=== PATIENT | male | born 1950 | race Two or more races ===

== ENCOUNTER 2024-06-29 21:09 | Inpatient (IN) | payer OTHER, SELFPAY ==
[2024-06-29 21:13] VITALS: BP 159/79
[2024-06-29 21:15] VITALS: BMI 23.3
[2024-06-29 22:38] VITALS: BP 155/68
[2024-06-29] MEDS: NITRO-BID 0.5 INCH TOPICAL (22:39)
[2024-06-29] MEDS: IMODIUM 2 MG PO (22:39)
[2024-06-29] MEDS: FLOMAX 0.8 MG PO (22:39)
--- NOTE | 2024-06-29 23:03 | HPS.HSE ---
Family Physician
-
Family Physician: Сергей Lopez
Chief Complaint
-
Localized exertional substernal chest pain x 10 days
History of Present Illness
Pleasant 74 y/o man with PMH of CAD S/P PCI with stents x 3 to LAD and RCA, 2004 and again in 2015. 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 It is noted that pt is medically non-compliant and intermittently takes meds, and has not
followed up with his Shipping Room Helper for > 5 years. Pt c/o exertional 7-8/10 localized substernal chest pain x 10 days, limiting his ability to walk his dog. States, his girlfriend drove him in to [facility] ER on 06/28/24 to seek medical
attention. Pt denies any associated symptoms of SOB, diaphoresis, nausea and vomiting. Pt does admit to having loose stools while at [facility]. Pt's SBP was noted to be 205 at [facility], as well as a slightly elevated high sensitivity Troponin I of
25. Pt underwent a left heart cath on 06/29/24 and was found to have multivessel CAD including in-stent restenosis of his LAD and RCA stents. Pt had TTE done on 06/29/24 which showed LVEF 60-65%, mild to moderate AI, and mild MR/TR. Pt was transferred
seek revascularization at on the evening of 06/29/24.
Medical History
Past Medical History
Past Medical History: Reports Other
Additional Past Medical History:
-Multivessel CAD
-Hx CAD
-NSTEMI (high sensitivity trop I of 25)
-USA
-LVEF 60-65%
-Mild-mod AI
-Mild MR/TR
-HTN
-HLD
-Bradycardia
-BPH
-Loose stools
Past Surgical History: Reports Other
Additional Past Surgical History:
-Left heart cath x 3
Social History
Tobacco: Non-smoker
Alcohol: Occasional
Drug: None
Personal: Other (has girlfriend, 3 children and 10 grandchildren)
Living: Alone
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
Family History
Family History: Not pertinent
Allergies / Home Medications
Allergies reflects when Allergies were last updated in [employer].
Home Medications with original date entered in [employer]
Meds: 06/29/24
-ASA, 81 mg po QDaily
-Losartan 25 mg po Qdaily
-Lipitor 40m g po QPM
-Flomax 0.8 mg po QHS
Allergy/Medication List:
NKDA
Review of Systems
-
Constitutional: Reports No Symptoms
EENT: Reports No Symptoms
Respiratory: Reports No Symptoms
Cardiac: Reports Chest Pain
Abdomen/GI: Reports Diarrhea
: Reports Incontinence (and retention)
Musculoskeletal: Reports No Symptoms
Skin: Reports No Symptoms
Neurological: Reports No Symptoms
Endocrine: Reports No Symptoms
Hematologic/Lymphatic: Reports No Symptoms
Psych: Reports No Symptoms
Physical Exam
Vital Signs
Vital Signs
Temp Pulse Resp BP Pulse Ox
98.0 F 58 18 159/79 97
06/29/24 21:17 06/29/24 22:00 06/29/24 21:17 06/29/24 21:13 06/29/24 21:17
Physical Exam
General: Well Developed and Well Nourished
HEENT: NormoCephalic, Anicteric, Moist mucous membranes and Atraumatic
Respiratory: Clear
Cardiac: S1/S2 and Regular Rhythm
Breast: Deferred by me
GI: Soft, Non Tender and Non Distended
Rectal: Deferred by Provider
Genito-urinary: Deferred by me
Musculoskeletal: No Clubbing, No Cyanosis and No Edema
Skin: Warm
Neuro: Awake, Alert, Oriented, AO x 3 and No Motor Deficits
Psych: Calm
Data Reviewed
-
Diagnostic Radiology: Report Reviewed by me
Medical Tests (Nuc Med, Echo, EKG etc): Report Reviewed by me
Lab Data: Labs Reviewed by me
Old Records: Reviewed
Impression/Plan
-
IMPRESSION:
Pleasant 74 y/o with known CAD S/P PCI with stents to LAD/RCA in 2004 and 2114, as well as a chronic WET PROCESS MILLER of mid LCx which is being treated medically, presented to [facility] on 06/29/24 with 7-8/10 localized exertional CP x 10 days, found to have
multivessel CAD including in-stent restenosis of LAD and RCA, transferred to the evening of 06/29/24 to seek CABG evaluation.
-Multivessel CAD
-Hx CAD
-NSTEMI (high sensitivity trop I of 25)
-USA
-LVEF 60-65%
-Mild-mod AI
-Mild MR/TR
-HTN
-HLD
-Bradycardia
-BPH
-Loose stools
-S/P left heart catheterization x 3
PLAN:
-Dr. Carrera to evaluate imaging and determine if pt is a surgical candidate
-Will consult Cardiology
-Will cont. ASA, Heparin gtt, Nitro-paste, Toprol XL, Flomax
-Will f/u AM labs
[2024-06-29] MEDS: HEPARIN 25000 UNITS/250 ML IV (23:08)
[2024-06-29] MEDS: TOPROL XL 12.5 MG PO (23:19)
[2024-06-29] MEDS: MAALOX 30 ML PO (23:37)
[2024-06-29 23:53] LABS: Hematocrit 39.1 % (39.0-52.0); Hemoglobin 13.5 g/dL (13.0-18.0); Mean Corp Hgb Conc. 34.5 g/dL (33.0-37.0); Mean Corpuscular Hgb 28.4 pg (27.0-31.0); Mean Corpuscular Volume 82.3 fL (80.0-94.0); Mean Platelet Volume 12.2 fL (7.4-10.4); Platelet Count 189 10^3/uL (130-400); Red Blood Cell Count 4.75 10^6/uL (4.70-6.10); Red Cell Dist. Width 13.7 % (11.5-14.5); White Blood Cell Count 8.4 10^3/uL (4.8-10.8)
[2024-06-30] VITALS (12 sets, daily range): BP systolic 117–202; BP diastolic 70–93; BMI 22.7
[2024-06-30 00:24] LABS: APTT 41.6 Sec (23.4-35.0)
--- NOTE | 2024-06-30 01:37 | PTCARENOTE ---
Pt called nursing to room again c/o heartburn. Pt had asked nursing if we had any baking soda. PA notified Lidia franklin.
[2024-06-30] MEDS: MYLICON 80 MG PO (01:43)
[2024-06-30] MEDS: NITRO-BID 0.5 INCH TOPICAL ×3 (05:42→17:56)
[2024-06-30 06:11] LABS: Hematocrit 37.8 % (39.0-52.0); Hemoglobin 12.9 g/dL (13.0-18.0); Mean Corp Hgb Conc. 34.1 g/dL (33.0-37.0); Mean Corpuscular Hgb 28.2 pg (27.0-31.0); Mean Corpuscular Volume 82.5 fL (80.0-94.0); Mean Platelet Volume 12.3 fL (7.4-10.4); Platelet Count 183 10^3/uL (130-400); Red Blood Cell Count 4.58 10^6/uL (4.70-6.10); Red Cell Dist. Width 13.8 % (11.5-14.5); White Blood Cell Count 7.4 10^3/uL (4.8-10.8)
[2024-06-30 06:15] LABS: PT 13.5 Sec (11.4-14.6)
[2024-06-30 06:29] LABS: ALT (SGPT) 23 U/L (0-50); AST (SGOT) 30 U/L (17-59); Albumin 4.3 g/dl (3.5-5.0); Alkaline Phosphatase 61 U/L (38-126); Blood Urea Nitrogen 17 mg/dl (9-20); Calcium 9.1 mg/dl (8.4-10.2); Carbon Dioxide 20 mmol/L (22-30); Chloride 108 mmol/L (98-107); Direct Bilirubin 0.1 mg/dl (0.0-0.4); Estimated Creatinine Clearance 74 ml/min; Glucose 129 mg/dl (70-99); HDL Cholesterol 65 mg/dl; LDL Cholesterol, Calculated 180 mg/dl; Potassium 4.2 mmol/L (3.5-5.1); Sodium 139 mmol/L (135-145); Total Bilirubin 1.1 mg/dl (0.2-1.3); Total Cholesterol 261 mg/dl (50-199); Total Protein 6.9 g/dl (6.3-8.2); Triglyceride 81 mg/dl (10-149); Very Low Density Lipoprotein 16 mg/dl (0-30); eGFR > 60.00
[2024-06-30 06:53] LABS: Magnesium 2.1 mg/dl (1.6-2.3)
[2024-06-30 07:25] LABS: Hepatitis C Antibody Negative (Negative)
[2024-06-30] MEDS: ASPIR LOW (ENTERIC COATED) 81 MG PO (08:52)
[2024-06-30] MEDS: TOPROL XL PO (08:53)
[2024-06-30] MEDS: PROTONIX 40 MG PO (08:53)
[2024-06-30 09:21] LABS: Glycohemoglobin (HgbA1c) 5.8 % (4.0-5.6)
--- NOTE | 2024-06-30 10:35 | PTCARENOTE ---
Patient denies any chest pain or sob this morning, states he slept well and feels good. Sent for his CT of the chest and ultrasound this morning. IV heparin infusing at 1030 units/hr, for repeat PTT at 1315. Patient awaiting when surgery will be.
--- NOTE | 2024-06-30 12:36 | CM ---
spoke to pt in room, he is prev indep, lives alone in a 1 story home with no steps to enter. he denies any dc planning needs or dme's. dc plan is home when medically stable. plan is for CABG tomorrow.
--- NOTE | 2024-06-30 13:48 | W.PN.UPDATE ---
Update Note
Progress Note Update
Procedure Type:�Isolated CABG
Perioperative Outcome Estimate %
Operative Mortality 1.64%
Morbidity & Mortality 5.66%
Stroke 1.26%
Renal Failure 0.853%
Reoperation 2.67%
Prolonged Ventilation 2.66%
Deep Sternal Wound Infection 0.064%
Long Hospital Stay (>14 days) 2.68%
Short Hospital Stay (<6 days)* 52.1%
Clinical Summary
Planned Surgery: Isolated CABG, Urgent, First cardiovascular surgery
Demographics: 74 year old, male, 65.6kg, 170cm, BMI: 22.7 kg/m�
Lab Values: Creatinine: 0.8 mg/dL, Hematocrit: 37.8%, WBC Count: 7.4 10�/�L, Platelet Count: 979703 cells/�L
Substance Abuse: Never smoker, Alcohol use: <=1 drink/week
Risk Factors / Comorbidities: Hypertension
Coronary Artery Disease: 3 vessels diseased, Proximal LAD Stenosis >=70%, Unstable Angina, AK: 1 to 7 Days
Valve Disease: Moderate AR, Mild MR, Mild TR
[2024-06-30 14:01] LABS: APTT 86.7 Sec (23.4-35.0)
--- NOTE | 2024-06-30 15:14 | CON.CAR ---
Consultation
Consultation Request
Date/Time Consultation Requested: June 30, 2024 9 AM
Date/Time Consultation Performed: June 30, 2024 3:15 PM
Requesting Provider: CT surgery
Performing Provider: Jeffery Garcia
Reason for Consultation: Multivessel CAD
Medical History
-
Chief Complaint: Transfer for CABG
History of Present Illness:
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 He tells me that he had substernal chest pain going on
approximately 2 weeks that was limiting his ability to walk his dogs. Because this lasted for so long he then sought out medical treatment at [facility] on June 28, 2024. He had mildly elevated troponin and was taken to the Psychological Science Professor that
showed multivessel CAD including in-stent restenosis of his LAD and RCA stents. He then had a TTE done on June 29 that showed normal LV function with an ejection fraction of 60-65%, mild to moderate AI, and mild MR and TR. He was then transferred
here for CABG consideration. He is currently chest pain-free and feels well.
Past Medical History
Past Medical History: Other (Multivessel CAD status post PCI, NSTEMI, mild to moderate AI, mild MR, mild TR, hypertension, hyperlipidemia)
Past Surgical History: Other (Heart cath)
Social History
Tobacco: Non-Smoker
Alcohol: Occasional
Drug: None
Personal: Partner
Living: With Family
Employment: Retired
Family History
Family History: Reviewed & Not Pertinent
Allergies / Home Medications
Allergy/AdvReac Type Severity Reaction Status Date / Time
No Known Allergies Allergy Unverified 06/29/24 22:04
�Medication �Instructions �Recorded �Confirmed �Type
aspirin 81 mg tablet 81 mg PO HS 06/30/24 06/30/24 History
atorvastatin 40 mg tablet 40 mg PO QPM 06/30/24 06/30/24 History
losartan 50 mg tablet 50 mg PO DAILY 06/30/24 06/30/24 History
tamsulosin 0.4 mg capsule 0.8 mg PO HS 06/30/24 06/30/24 History
Review of Systems
-
All other systems: Negative unless noted
Physical Exam
Vital Signs
Temp Pulse Resp BP Pulse Ox
98.4 F 55 16 165/84 97
06/30/24 11:16 06/30/24 12:26 06/30/24 11:16 06/30/24 12:26 06/30/24 11:16
Lab Results
06/30/24 05:54
06/30/24 05:54
Physical Exam
General: Well Developed, No Apparent Distress and Comfortable
HEENT: Normocephalic
Respiratory: Clear and Non Labored Respirations
Cardiac: S1/S2 and Regular Rhythm
GI: Soft
Musculoskeletal: No Cyanosis and No Edema
Skin: Warm and Dry
Neuro: AO x 3
Psych: Calm
Impression / Plan
-
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 He was found to have an NSTEMI and cath showed multi-vessel CAD.
Multi vessel CAD
- CABG tomorrow AM
- Cont aspirin heparin gtt
- statin
HTN
- cont metoprolol
HLD
- cont statin
BPH
- cont tamsulosin
Data Reviewed
-
EKG: Tracing Personally Visualized and interpreted (sr)
Labs: Labs Reviewed by me
--- NOTE | 2024-06-30 16:32 | CM ---
spoke to pt in room, we discussed preop teaching including sternal and driving restrictions. he is prev indep, lives in a first floor duplex. has 2 kids- his daughter is nearby and his son is in [place]. his daughter will be staying with him after
surgery. he has the ct surgery book. he is agreeable to a f/u visit from the ct transitional care nurse after dc. plan is for cabg tomorrow am. cm role explained and all questions answered.
[2024-06-30] MEDS: LIPITOR 40 MG PO (17:55)
[2024-06-30] MEDS: TOPROL XL 12.5 MG PO (19:31)
[2024-06-30 20:01] LABS: APTT 99.6 Sec (23.4-35.0)
--- NOTE | 2024-06-30 21:55 | PTCARENOTE ---
Received patient at change of shift. SB on the monitor, HR in the 50s. R radial UMER, intact. Heparin running as per protocol, see MAR. No complaints from pt at this time call mahoney within reach.
[2024-06-30] MEDS: FLOMAX 0.8 MG PO (22:17)
[2024-06-30] MEDS: APRESOLINE 10 MG IV (23:25)
[2024-06-30] MEDS: NITRO-BID 1 INCH TOPICAL (23:48)
[2024-06-30] MEDS: HEPARIN 25000 UNITS/250 ML IV (23:49)
[2024-07-01] VITALS (15 sets, daily range): BP systolic 82–174; BP diastolic 52–81; BMI 22.4
--- NOTE | 2024-07-01 00:02 | PTCARENOTE ---
Clipped and bathed pt with CHG soap. BP 202/88, CT surgery PA notfied. Hydralazine and nitropaste administered as per PA, see MAY. NPO at midnight. BP now 145/70.
[2024-07-01 05:23] LABS: Hematocrit 37.1 % (39.0-52.0); Hemoglobin 12.8 g/dL (13.0-18.0); Mean Corp Hgb Conc. 34.5 g/dL (33.0-37.0); Mean Corpuscular Hgb 28.7 pg (27.0-31.0); Mean Corpuscular Volume 83.2 fL (80.0-94.0); Mean Platelet Volume 12.6 fL (7.4-10.4); Platelet Count 193 10^3/uL (130-400); Red Blood Cell Count 4.46 10^6/uL (4.70-6.10); Red Cell Dist. Width 13.8 % (11.5-14.5); White Blood Cell Count 6.9 10^3/uL (4.8-10.8)
[2024-07-01] MEDS: BACTROBAN 2% OINTMENT 1 APPLIC NASAL ×2 (06:05→20:16)
[2024-07-01] MEDS: LOPRESSOR 12.5 MG PO (06:05)
[2024-07-01] MEDS: PROTONIX 40 MG PO (06:05)
[2024-07-01] MEDS: MAGNESIUM OXIDE 500 MG PO (06:05)
[2024-07-01] MEDS: NITRO-BID TOPICAL ×2 (06:10→13:06)
[2024-07-01 06:22] LABS: APTT > 200 Sec (23.4-35.0)
[2024-07-01] MEDS: PROTONIX PO (07:45)
[2024-07-01] MEDS: TOPROL XL PO (07:46)
[2024-07-01] MEDS: ASPIR LOW (ENTERIC COATED) PO (07:48)
--- NOTE | 2024-07-01 08:40 | PTCARENOTE ---
Patient seen by Dr. Carrera this morning and would like him transferred to CVICU this morning pre-op. Patient transferred with his belongings to room 2262, report given to Renee.
--- NOTE | 2024-07-01 09:15 | W.PN.CD ---
Today's Communication / Plan
-
Surgery today.
Impression / Plan
-
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
#NSTEMI/Multi vessel CAD
-Acute on chronic, progressive.
-Cath reportedly shows ISR of LAD/LCx stents.
-CABG today.
-Cont aspirin heparin gtt.
-High dose, high potency statin.
-Anticipate routine post operative management.
#HTN
-Chronic, uncontrolled.
-Cont metoprolol.
-Hydralazine PRN.
-He will probably need a different regimen after surgery. There is some question of medication compliance.
#HLD
-Chronic, stable.
-Total cholesterol = 261, LDL = 180, HDL = 65, Triglycerides = 81.
-High dose, high potency statin.
-Goal LDL < 55.
#BPH
-Chronic, stable.
-Continue tamsulosin.
Subjective/Interval History:
Hypertensive overnight. Hydralazine given.
BP improved.
DATA:
CT Chest, 06/30/2024:
IMPRESSION:
1. SEVERE CALCIFIC ATHEROSCLEROTIC PLAQUE in the CORONARY ARTERIES.
2. Mild calcific atherosclerotic plaque and tortuosity of the thoracic aorta.
3. Mild cardiomegaly.
4. Mild bilateral bronchitis.
5. Mild subpleural subsegmental atelectasis and scarring in the basilar segments of the lower lobes and additional bands of scarring in the right lower and middle lobes.
6. Minimal bilateral pleural effusions.
7. Large 7.6 cm left renal cyst containing a large 2.8 cm calcification.
Carotid Artery Duplex, 06/30/2024:
IMPRESSION: Soft plaque distal right common carotid artery and bulb. Velocity profiles consistent with less than 50% bilateral internal carotid artery stenosis. Antegrade flow bilateral vertebral arteries.
Physical Exam
Vital Signs/Labs
Vital Signs
Temp Pulse Resp BP Pulse Ox
36.9 C 60 18 138/80 98
07/01/24 08:16 07/01/24 06:05 07/01/24 08:16 07/01/24 06:05 07/01/24 08:16
06/29/24 06/30/24 07/01/24
11:59 11:59 11:59
Actual Weight 65.6 kg 64.8 kg
07/01/24 05:04
06/30/24 05:54
PT 13.5 Sec (11.4-14.6) 06/30/24 05:54
INR 1.00 06/30/24 05:54
APTT > 200 Sec (23.4-35.0) H* 07/01/24 05:46
Magnesium 2.1 mg/dl (1.6-2.3) 06/30/24 05:54
Triglycerides 81 mg/dl (10-149) 06/30/24 05:54
LDL Cholesterol, Calc 180 mg/dl 06/30/24 05:54
VLDL Cholesterol, Calc 16 mg/dl (0-30) 06/30/24 05:54
HDL Cholesterol 65 mg/dl 06/30/24 05:54
Physical Exam
Constitutional: No acute distress and Comfortable
EENT: Anicteric and Moist mucous membranes
Cardiovascular: Rhythm & rate is regular, Pedal edema is absent, JVD pressure is normal, S1S2 is normal and Murmur/rub/gallop absent
Respiratory: Respiratory effort normal, Lungs clear to auscul., Wheeze Absent, Crackles Absent and Rhonchi Absent
GI: Soft, Distention absent, Flat, Non tender and Normal bowel sounds
Neuro/Psych: AO x 3
Data Reviewed
-
Date of Service: July 01, 2024
Medical Decision Making: Reviewed Test Results, Independent Historian Assessment and Test Interpretation
EKG: Tracing Personally Visualized and interpreted and Report Reviewed by me
X-Ray/CT/US/MRI/NUC/PET: Report Reviewed by me
Medical Tests (PFT, Pathology etc): Report Reviewed by me
Labs: Labs Reviewed by me
Old Records: Reviewed
--- NOTE | 2024-07-01 10:30 | W.CVOR.SURPR ---
CVOR Surgeon Immed Pre Op
-
I have examined this patient prior to performance of the scheduled procedure.
The patient's condition is unchanged from the time of the dictated/written History and
Physical and the patient is able to undergo the scheduled procedure.
CABG +JOZEF Clip
--- NOTE | 2024-07-01 10:56 | CM ---
Chart reviewed. Patient is in the OR today. Patient is independent of ADLS, lives alone in a 1st floor apartment, 0 NARESH, 0 DME. Patient's daughter is going to stay with the patient when he goes home. Plan is for the patient to go home with CT
Transitional RN. CM to follow
[2024-07-01 12:23] LABS: ACT+ - POC 93 Seconds (82-134)
[2024-07-01 12:41] LABS: Urine Albumin 2+ (Neg - Trace); Urine Bilirubin Negative (Negative); Urine Character Clear (Clear); Urine Color Yellow; Urine Glucose Negative (Negative); Urine Ketone Negative (Negative); Urine Leukocyte Negative (Negative); Urine Nitrite Negative (Negative); Urine Occult Blood 3+ (Negative); Urine Specific Gravity 1.015 (<1.030); Urine Urobilinogen Negative (Neg - 1+)
[2024-07-01 13:22] LABS: Urine Red Blood Cell 16-20 /HPF (0-2)
[2024-07-01 13:46] LABS: ACT+ - POC 465 Seconds (82-134)
[2024-07-01 13:55] LABS: Glucose - POC 108 mg/dl (70-99); HCO3 - POC 24 mmol/L (21-28); Hematocrit - POC 38 % PCV (42-52); Hemodilution- POC No; Hemoglobin Calculated - POC 12.9; Ionized Calcium - POC 1.11 mmol/L (1.15-1.33); Lactate - POC 0.68 mmol/L (0.36-0.75); O2 Saturation %Calculated-POC 99.8 % (94-98); PCO2 - POC 35 mmHg (35-48); PO2 - POC 235 mmHg (83-108); Potassium - POC 3.5 mmol/L (3.5-5.1); Sodium - POC 141 mmol/L (136-145); Specimen Type - POC Arterial; pH - POC 7.44 (7.35-7.45)
[2024-07-01 14:09] LABS: ACT+ - POC 525 Seconds (82-134)
[2024-07-01 14:38] LABS: ACT+ - POC 516 Seconds (82-134)
[2024-07-01 15:03] LABS: Glucose - POC 158 mg/dl (70-99); HCO3 - POC 24 mmol/L (21-28); Hematocrit - POC 30 % PCV (42-52); Hemodilution- POC Yes; Hemoglobin Calculated - POC 10.3; Lactate - POC 1.03 mmol/L (0.36-0.75); O2 Saturation %Calculated-POC 99.9 % (94-98); PCO2 - POC 38 mmHg (35-48); PO2 - POC 286 mmHg (83-108); Potassium - POC 4.4 mmol/L (3.5-5.1); Sodium - POC 140 mmol/L (136-145); Specimen Type - POC Arterial
[2024-07-01 15:16] LABS: B.E. - POC -0.7 mmol/L; Glucose - POC 127 mg/dl (70-99); HCO3 - POC 24 mmol/L (21-28); Hematocrit - POC 31 % PCV (42-52); Hemodilution- POC Yes; Hemoglobin Calculated - POC 10.6; Ionized Calcium - POC 0.94 mmol/L (1.15-1.33); Lactate - POC < 0.30 mmol/L (0.36-0.75); PCO2 - POC 38 mmHg (35-48); PO2 - POC 484 mmHg (83-108); Potassium - POC 4.5 mmol/L (3.5-5.1); Sodium - POC 138 mmol/L (136-145); Specimen Type - POC Arterial; pH - POC 7.41 (7.35-7.45)
[2024-07-01 15:34] LABS: ACT+ - POC 109 Seconds (82-134)
--- NOTE | 2024-07-01 15:55 | CON.INTV ---
Consultation
Consultation Request
Date/Time Consultation Requested: 07/01/2024
Date/Time Consultation Performed: 07/01/2024
Requesting Provider: Juan C Carrera
Performing Provider: Darling Gallegos
Reason for Consultation: CAD
Medical History
-
Chief Complaint: Chest pain
History of Present Illness:
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 He had ongoing pain for about 2 weeks time
prior to his presentation. In the hospital he was noted to have mildly elevated troponin and noted to have non-ST elevation RI. He was taken to Clinical Technician and noted to have multivessel coronary artery disease with in-stent restenosis of his LAD and
RCA stents. LV function was noted to be normal and he was transferred to [facility] for consideration for coronary artery bypass graft. Cardiology and CT surgery evaluated the patient and he was taken to the OR today for surgical
revascularization. Postsurgery, patient was brought to cardiovascular ICU and welding instructor consultation was requested for further input.
Past Medical History: Reports Other
Additional Past Medical History:
-Multivessel CAD
-Hx CAD (PCIs in the past)
-NSTEMI (high sensitivity trop I of 25)
-USA
-LVEF 60-65%
-Mild-mod AI
-Mild MR/TR
-HTN
-HLD
-Bradycardia
-BPH
-Loose stools
Past Surgical History: Reports Other
Additional Past Surgical History:
-Left heart cath x 3
Social History
Tobacco: Non-smoker
Alcohol: Occasional
Drug: None
Personal: Other (has girlfriend, 3 children and 10 grandchildren)
Living: Alone
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
Family History
Family History: Not pertinent
Allergies / Home Medications
Allergies
Allergy/AdvReac Type Severity Reaction Status Date / Time
No Known Allergies Allergy Unverified 06/29/24 22:04
Home Medications
�Medication �Instructions �Recorded �Confirmed �Last Taken �Type
aspirin 81 mg tablet 81 mg PO HS 06/30/24 06/30/24 06/29/24 History
atorvastatin 40 mg tablet 40 mg PO QPM 06/30/24 06/30/24 06/29/24 History
losartan 50 mg tablet 50 mg PO DAILY 06/30/24 06/30/24 06/29/24 History
tamsulosin 0.4 mg capsule 0.8 mg PO HS 06/30/24 06/30/24 06/29/24 History
Review of Systems
-
Unable to Obtain full review of systems at this time due to: Patient Intubation and Other (Sedated)
Vitals / Labs / Diagnostic Testing
Vital Signs
Temp Pulse Resp BP Pulse Ox
98.4 F 57 18 145/69 98
07/01/24 08:16 07/01/24 11:00 07/01/24 08:16 07/01/24 11:00 07/01/24 08:16
Laboratory Results
06/30/24 07/01/24 07/01/24
19:42 05:04 05:46
APTT 99.6 H Cancelled > 200 H*
Microbiology
06/30/24 05:54 Nose MRSA Screen - Final
No Methicillin Resistant Staphylococcus aureus isolated.
Diagnostic Testing:
Physical Exam
-
HEENT: Normocephalic
Cardiovascular: Regular Rhythm
Respiratory: Clear and Non-Labored Respirations
GI: Soft
Neurology: Other (Sedated)
Skin: Warm
General: Comfortable
Assessment
-
74 y/o patient with NSTEMI and multivessel coronary artery disease is S/p CABG x4 and left atrial appendage exclusion, POD #0
Titrate off pressors per protocol, currently receiving IVF bolus for CVP 2, Levophed infusing @2
ECHO reviewed with normal EF
PA catheter removed, Cordis in place
Management of chest tubes per primary service
Intubated/sedated, initiate SAT when able
Pain control
RASS goal of 0 to -1
Intubated for procedure, SBT trial when patient able to spontaneously breath. Currently on Precedex @0.5
Current vent settings: SIMV 500/14/40%/PEEP 5. breathing @ 14/min
ABG(s) pending
CXR with no obvious opacities/infiltrates, low lung volumes, ETT in good position, lines/tubes in place
Extubate per protocol
Maintain supplement oxygen as needed
No prior history of pulmonary disease. Will discuss further once patient is awake, alert and able to participate in conversation
Spirometry reviewed, normal
Can add nebulizers if needed
Aspiration precautions
Encouraged incentive spirometry, OOB/ambulation/early mobility
Advance diet as tolerated following extubation
Monitor critical I/O's
Baxter/chest tube output
Hb/platelets postoperatively, labs pending
Trend CBC for now
Can transfuse if indicated for Hb <7, plt <50 in surgical patients
DVT prophylaxis including SCDs
Insulin protocol initiated and ongoing, per protocol
Transition to SQ/off as indicated per team
Critical Care time 65 mins -- The patient is admitted for acute critical illness for the treatment of vital organ failure and/or prevention of further life-threatening conditions. Total care includes time spent in review of history, physical exam,
medications, hemodynamic/ventilator parameters, laboratory data, imaging and discussion with house staff, pharmacy, respiratory therapy, cath laboratory technician, and nursing.
Data:
Spirometry 06/2024: FFEV1 89%, FVC 95%. FEV1/FVC 71. Normal spirometry
BARBARA 06/2024: Normal biventricular systolic function with no wall motion abnormalities. The
LVEF is 60-65% by visual inspection.
Mild mitral regurgitation.
Mild to moderate aortic insufficiency.
Normal tricuspid valve.
Grade III atheromatous disease of the aortic arch is present.
Normal left atrial appendage
CT Chest 06/2024: 1. SEVERE CALCIFIC ATHEROSCLEROTIC PLAQUE in the CORONARY ARTERIES.
2. Mild calcific atherosclerotic plaque and tortuosity of the thoracic aorta.
3. Mild cardiomegaly.
4. Mild bilateral bronchitis.
5. Mild subpleural subsegmental atelectasis and scarring in the basilar segments of the lower lobes and additional bands of scarring in the right lower and middle lobes.
6. Minimal bilateral pleural effusions.
7. Large 7.6 cm left renal cyst containing a large 2.8 cm calcification
Cardiac cath 06/2024: (Merrill Hurtado). Multivessel CAD, in-stent restenosis of his LAD and RCA stents
--- NOTE | 2024-07-01 15:59 | W.PN.CT.SURG ---
CT Surgery Operative Note
-
CARDIAC SURGERY OPERATIVE REPORT
Preoperative Diagnosis: Multivessel Coronary Artery Disease with NSTEMI
Postoperative Diagnosis: Same
Procedure(s) Performed:
1. Sinus with aortic and right atrial cannulation
2. Internal mammary artery harvesting
3. Endoscopic radial artery and lower extremity vein harvesting
4. Multi arterial coronary artery bypass grafting x 4 (In situ LUCERO to LAD, Ao to L Radial OM, Ao to RSVG to High diagonal, Ao to RSVG to RPDA)
5. Placement of temporary ventricular pacing wire
6. Left atrial appendage exclusion [45 mm device, serial #[id number]]
7. Transesophageal echocardiography
Date of Surgery: 07/01/2024
Comorbidities:
1. NSTEMI
2. Multivessel coronary disease status post PCI and stenting in the past
3. Hypertension
4. Hyperlipidemia
5. Sinus bradycardia
Attending Surgeon: Juan C Carrera MD, MS
Assistants: Marsha Nelson PA-C (present and necessary to first helper, endoscopic vein harvest, retraction, suction, exposure, suture management, and wound closure under my direction), Juan C May PA-C (endo radial harvest)
Anesthesiology: Sathya Amaral MD and Myles Avila CRNA
Scrub and Circulating RNs: Tyrone Lopez RN, tSephani Burnette RN
Data Security Administrator: Cramen Wooten CCP
Anesthesia: GETA
EBL: per perfusion records
Products: None
CPB Time: 82 minutes
Aortic Cross Clamp Time: 78 minutes
Indication(s) for Procedures: This is a 74-year-old male who presented with an NSTEMI, he had multivessel coronary artery disease and prior stenting in the past. Given his disease pattern, he was referred here for surgical consideration. 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 Due to his elevated chads Vascor, his left atrial appendage will be managed at time of surgery.
Conduit(s) Quality:
LUCERO -excellent/skeletonized
Left radial�excellent/thin pedicle with veins
RSVG -good/overall minimal varicosities and thickening
Target(s) Quality:
RPDA -excellent/large caliber target, flow probe assessment with mean flow of 29 cc a minute and pulsatile index of 5.5
OM -excellent/the radial was grafted here, the mean flow was approximately 18 cc a minute with a pulsatile index of 4.8, the radial was grafted directly off of the aorta
Diagonal�excellent large caliber vessel, mean flow of 25 cc a minute with a pulse index of 3.5
LAD -good/I opened across the distal lesion of the LUCERO LAD at the small diagonal vessel and created a 2 cm arteriotomy and grafted the LUCERO to that length, mean flow was 20 cc a minute at a pulsatile index of 5.1
Findings: His left ventricular ejection fraction preoperatively was normal at 60% with no significant regional wall motion abnormalities. He he did have a mild degree of aortic valve insufficiency and a mild degree of mitral valve insufficiency
which remained unchanged. Only surgery his EF remained the same at 60% with no new regional wall motion abnormalities. The LUCERO was harvested in a skeletonized fashion. Following bypass grafting, test dose cardioplegia was given down each distal
and confirmed patency and hemostasis. With respect to the LAD target, as he had a distal lesion after the stent I opened up the lesion entirely spanning approximately 2 cm and performed anastomosis over that length. This allowed great perfusion to
the distal LAD as well as retrograde. His left atrial appendage was verified to be free of any thrombus or debris preoperatively and found to be totally occlusive postoperatively. He did not require any blood products, he was in a sinus rhythm
after surgery, he did not require any inotropic support.
Description of Procedure: The patient was taken to the operating room. Their identity and procedure to be performed were verified and they were positioned supine on the operating table. Induction via general anesthesia with endotracheal intubation
was performed and central venous access and arterial monitoring were inserted. A preoperative transesophageal echocardiogram was performed to assess cardiac function and valvular function. The patient was then prepped and draped from chin to feet in
a sterile fashion. A preoperative time-out was performed with all members of the team present. A midline chest incision was performed along with median sternotomy. Simultaneous endoscopic access of the right lower extremity for saphenous vein and
left arm for radial artery harvest was obtained along with administration of an initial 5,000 units of IV heparin. A RulTract sternal retractor was positioned to exposure the left internal mammary bed. The mammary was harvested and found to have
good flow. A bulldog clamp was applied to the distal end of the mammary after dividing it. It was wrapped in a papaverine soaked RayTec and replaced back into the left hemithorax. The RulTract was exchanged for a median sternal retractor. The
innominate vein was isolated. Full heparinization was given (a total of 38,000 units). We created a pericardial well. The aortic cannulation site was chosen where it was soft, pliable, and free of calcium. Cannulation was performed with an arterial
cannula in the ascending aorta and a triple-stage venous cannula through the right atrial appendage. The arterial cannula line had an appropriate bounce and correlating pressures with test dosing. Next, a root vent/antegrade cannula was inserted
into the ascending aorta. The ACT was confirmed to be over 400 and retrograde autologous priming was performed before commencing cardiopulmonary bypass. The pulmonary artery was away from the aorta to facilitate a clamp site. The aortic
cross-clamp was placed after decreasing the flow on the bypass and mean arterial pressure. A total of 1.2L initial dose of antegrade Del-Nido cardioplegia solution was given and planned for re-dosing every 75 minutes as necessary. There was rapid
electro-mechanical arrest of the heart at 400 cc of cardioplegia. The left ventricle was observed for distention on echocardiogram and manual palpation. Cold slush was placed into a sponge and topically on the RV while we systemically cooled to 34
degrees centigrade. Once the heart was fully arrested it was decompressed and rotated medially, the left atrial Penders was sized to a 45 mm device which was applied flush to the base. The ligament of Hunter was divided.
At this point since I ready had the heart rotated over the OM was exposed. I opted to dissect the OM vessel with a Lowell blade and found a fairly sizable target. A small coronary tree artery was created and enlarged with Poole scissors. The
distal end of the radial artery graft was beveled and a distal anastomosis was created with 8-0 Prolene in a running fashion and secured with a micro core knot. An Angiocath was used to inflate and assess flow down the radial artery graft which was
excellent. Was also adequate hemostasis. Next, I positioned the heart to expose the high diagonal vessel. A pitka's point blade was used to expose the coronary and perform the arteriotomy. Coronary Poole scissors were used to enlarge the incision. The
saphenous vein was trimmed and beveled to an appropriate size. The distal anastomosis was performed using 7-0 prolene in an end-to-side fashion. Antegrade cardioplegia was administered into the graft. Appropriate hemostasis and flow were confirmed.
The graft was measured for length to the aorta and cut. A suitable site on the RPDA was chosen. We dissected and prepared the distal target in a similar fashion. An end-to-side anastomosis was created with a 7-0 prolene. Antegrade cardioplegia was
administered into the graft. Appropriate hemostasis and flow were confirmed. The graft was measured for length to the aorta and cut. A suitable target on the distal left anterior descending was identified. We dissected and prepared the distal target
in a similar fashion at the I made this target much larger spanning across the distal lesion. We retrieved the LUCERO from the chest and created a pericardial opening while being cognizant of the phrenic nerve to facilitate the course of the mammary.
The distal end of the mammary was prepped and beveled to size. We verified orientation and length of the MOLLY and found brisk flow. An long end-to-side anastomosis was created with a 7-0 prolene. We temporarily released the bulldog clamp on the
mammary to inspect flow. Perfusion to the LAD territory was visualized and hemostasis was confirmed. The bull clamp was replaced on the mammary. The heart was filled and the root was distended with antegrade cardioplegia to make final assessment of
graft length and orientation. We created 3 aortotomies using a #11 blade then a 4.0mm aortic punch. The proximal anastomoses were created in an end-to-side fashion using 6-0 prolene for the vein graft and 7-0 Prolene for the radial graft. At the the
same time, we re-warmed to 36.5 degrees centigrade. The bulldog clamp was removed from the mammary. Temporary bipolar ventricular pacing wires were placed on the base of the right ventricle. The patient was placed in a Trendelenburg position and
flows on bypass were lowered. The aortic cross clamp was removed and flows were slowly brought back up. A 30-gauge needle was used to de-air the vein grafts. All bypass grafts were inspected and were free from kinking or twisting. The distal and
proximal anastomoses appeared hemostatic. Once transesophageal echocardiography appeared satisfactory for de-airing, the flows were temporarily lowered for root vent removal. After verifying acceptable parameters, we initiated weaning from
cardiopulmonary bypass. Once we were off cardiopulmonary bypass, the venous cannula was clamped and removed. A test dose of protamine was administered and the patient was monitored for any adverse reaction before resuming protamine. Once half of the
protamine dose was delivered, pump suckers were turned off and the systolic blood pressure was lowered for aortic decannulation. The aortic cannula was removed and pursestrings were tied down. All cannulation sites were oversewn with a 4-0 prolene.
The mammary bed was inspected and hemostasis was confirmed. Once the mediastinum was hemostatic, 19Fr Darian drain was placed in the left pleural cavity and two 24Fr Darian drains were placed within the pericardium. The sternum was approximated with 4
#7 single and 3 #8 double stainless steel wires. Fascia was approximated with #1 vicryl suture. The subcutaneous, dermis and epidermis were closed in layers in a running fashion. The skin wound was cleansed and dressed.
All instrument, sponge, and needle counts were confirmed to be correct x 2 at the end of the operation. The patient was transferred to the cardiac intensive care unit in critical but stable condition.
I, Dr. Juan C Carrera, was present, scrubbed for, and performed all critical elements of this procedure.
Juan C Carrera MD, MS
Cardiothoracic Surgeon
[facility]
This operative dictation was created using the [employer] dictation system. Please excuse any grammatical, typographical, or 'sound alike' errors
[2024-07-01] MEDS: LR 250 ML IV ×3 (16:15→17:33)
[2024-07-01 16:23] LABS: Glucose - Point of Care 164 mg/dl (70-99)
[2024-07-01] MEDS: NSS 500 IV (16:32)
[2024-07-01] MEDS: NEURONTIN PO ×2 (16:33→23:10)
[2024-07-01] MEDS: PACERONE PO ×2 (16:33→23:10)
[2024-07-01 16:34] LABS: Hematocrit 30.6 % (39.0-52.0); Hemoglobin 10.5 g/dL (13.0-18.0); Platelet Count 147 10^3/uL (130-400)
[2024-07-01] MEDS: TYLENOL PO ×2 (16:34→23:10)
[2024-07-01] MEDS: ANCEF 10 IV ×2 (16:34)
[2024-07-01] MEDS: NOVOLOG FLEXPEN SC ×2 (16:34)
[2024-07-01 16:35] LABS: HCO3 20.8 mmol/L (21-28); Ionized Calcium 1.21 mMOL/L (1.15-1.33); O2 Saturation % 98.4 % (94-98); PCO2 32 mmHg (35-48); PO2 146 mmHg (83-108); Potassium 3.6 mMOL/L (3.5-5.1); Sodium 135 mMOL/L (136-145); pH 7.42 (7.35-7.45)
[2024-07-01 16:41] LABS: INR 1.31; PT 16.8 Sec (11.4-14.6)
[2024-07-01 16:42] LABS: APTT 32.3 Sec (23.4-35.0)
[2024-07-01] MEDS: KCL 50 IV ×2 (16:45→17:35)
--- NOTE | 2024-07-01 16:45 | PTCARENOTE ---
pt received from [facility] @~1610, sedated on Precedex gtt, RASS -5. Core temp 96.1F, bear hugger applied as ordered. SB on the monitor, HR 40-50s. V wire in place, insulated. CVP~1-2, LR bolus given as ordered. weakly palpable pulses, palpable L ulnar
pulse. no edema. pt mechanically ventilated, ETT #8.0, 24cm@lip. SIMV 14, TV 500, PEEP 5, FIO2 40%. POX 98%. lungs clear anteriorly. CTx3 connected to wall suction, no air leak or crepitus noted. Sternal incision UMER, approximated. chest tube site
c/d/i. R groin puncture BAGGER MEAT. RLE BIBIANA bandage in place. LUE BIBIANA bandage in place. RIJ cordis maintained. R radial [place]wood flushed, zeroed, and calibrated. PIV. insulin gtt running as ordered. lab work drawn, EKG performed, CXR completed. see worklist
for VS, I&O, and assessment.
[2024-07-01 16:46] LABS: Blood Urea Nitrogen 16 mg/dl (9-20); Estimated Creatinine Clearance 73 ml/min; Glucose 158 mg/dl (70-99); Magnesium 2.8 mg/dl (1.6-2.3)
[2024-07-01 17:00] LABS: Glucose - Point of Care 145 mg/dl (70-99)
[2024-07-01] MEDS: LIPITOR PO (17:23)
[2024-07-01 17:59] LABS: Glucose - Point of Care 128 mg/dl (70-99)
--- NOTE | 2024-07-01 18:16 | PTCARENOTE ---
pt nodding appropriately, CORTEZ, follows commands. drowsy. shakes head no to pain. RIJ cordis dressing changed. oral hygiene performed.
--- NOTE | 2024-07-01 18:38 | PTCARENOTE ---
attempted CPAP trial, pt too drowsy. placed back on SIMV settings.
--- NOTE | 2024-07-01 19:05 | PTCARENOTE ---
Patient received from RN @1900. Patient laying im bed comfortably intubated. Patient awakens to verbal stimuli and follows all commands. Sinus bradycardia BP 111/53 HR 51. Heart sounds audible. V-wires set to 40/15/2. Right radial pulse
present weak on palpation. Left ulnar pulse present and weak on palpation. Left hand warm. Bilateral pedal pulses present and weak on palpation. Trace edema noted in Left hand and right foot. Lungs clear bilaterally anteriorly and diminished in
the bases. ETT size 8 amd 24 @ the lip. SIMV set to 500/40/14/5. 2x mediastinal chest tubes and 1 left pleural set to wall suction at -20 draining red fluid WNL. No crepitus tidaling or air leaks noted. Baxter draining clear yellow urine WNL.
Bowel sounds hypoactive. 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 Chest tube dressing dry and intact. Left radial brian wrap dry and intact. Right groin puncture well approximated and UMER. Right leg brian wrap dry and intact. RIJ cordis w/
slick patent and intact. Right radial A-line patent and intact. Right PIV patent and intact. All lines zeroed and leveled. On Levo and Insulin. See worklist for details.
[2024-07-01 19:10] LABS: Glucose - Point of Care 107 mg/dl (70-99)
--- NOTE | 2024-07-01 19:15 | PTCARENOTE ---
Respiratory at bedside. CPAP trial started.
--- NOTE | 2024-07-01 19:35 | PTCARENOTE ---
Lisandra started @[address] DEMETRIO Oneil.
[2024-07-01 20:00] LABS: Glucose - Point of Care 125 mg/dl (70-99)
[2024-07-01 20:03] LABS: B.E. -2.3 mmol/L; HCO3 21.1 mmol/L (21-28); O2 Saturation % 99.1 % (94-98); PCO2 31 mmHg (35-48); PO2 143 mmHg (83-108); pH 7.44 (7.35-7.45)
--- NOTE | 2024-07-01 20:05 | PTCARENOTE ---
Labs drawn and CT DEMETRIO Oneil notified. Brief period of drowsiness. Ordered to wait 30 min before extubating
[2024-07-01] MEDS: SENOKOT-S PO (20:16)
[2024-07-01] MEDS: OFIRMEV 100 IV (20:23)
--- NOTE | 2024-07-01 20:35 | PTCARENOTE ---
Respiratory in room. Patient extubated to 6L NC without complication @ 2034.
--- NOTE | 2024-07-01 20:45 | PTCARENOTE ---
Patient complains of numbness and swelling in left hand. CT DEMETRIO Oneil notified. Doppler to confirm pulses. Pulses marked w/ marker.
[2024-07-01 21:05] LABS: Hematocrit 31.4 % (39.0-52.0); Platelet Count 173 10^3/uL (130-400)
[2024-07-01 21:08] LABS: Glucose - Point of Care 124 mg/dl (70-99)
[2024-07-01] MEDS: TORADOL 15 MG IV (22:34)
[2024-07-01] MEDS: LOW STRENGTH ASPIRIN 81 MG PO (22:49)
[2024-07-01 22:58] LABS: Glucose - Point of Care 106 mg/dl (70-99)
[2024-07-01] MEDS: ANCEF 5 IV (23:21)
[2024-07-01] MEDS: NORVASC 2.5 MG PO (23:21)
[2024-07-01] MEDS: NITROGLYCERIN PREMIX 250 IV (23:38)
--- NOTE | 2024-07-01 23:45 | PTCARENOTE ---
Patient BP elevated. Cardene turned to 10 and Nitro started at [address] PA Thad.
[2024-07-02] VITALS (34 sets, daily range): BP systolic 91–158; BP diastolic 54–71; PULSE 65; O2SAT 93–95; BMI 22.6
--- NOTE | 2024-07-02 00:06 | PTCARENOTE ---
Patient BP dropped significantly w/ a brief loss of consciousness. CT PA Tsillina notified. Legs elevated Cardene and Nitro stopped. BP returned to normal. Started Ntro at [address] DEMETRIO Oneil.
[2024-07-02] MEDS: FLOMAX PO (00:18)
[2024-07-02] MEDS: ROXICODONE 2.5 MG PO (00:45)
[2024-07-02 00:55] LABS: Glucose - Point of Care 94 mg/dl (70-99)
--- NOTE | 2024-07-02 02:21 | PTCARENOTE ---
BP elevated. Cardene started @2.[address] PA Thad.
[2024-07-02 03:28] LABS: Glucose - Point of Care 134 mg/dl (70-99)
--- NOTE | 2024-07-02 04:01 | PTCARENOTE ---
Patient reassessed. BP elevated. VSS. EKG obtained and Labs drawn.
[2024-07-02 04:06] LABS: Hematocrit 28.7 % (39.0-52.0); Hemoglobin 9.8 g/dL (13.0-18.0); Mean Corp Hgb Conc. 34.1 g/dL (33.0-37.0); Mean Corpuscular Hgb 28.8 pg (27.0-31.0); Mean Corpuscular Volume 84.4 fL (80.0-94.0); Mean Platelet Volume 12.7 fL (7.4-10.4); Platelet Count 161 10^3/uL (130-400); Red Cell Dist. Width 13.8 % (11.5-14.5); White Blood Cell Count 10.2 10^3/uL (4.8-10.8)
[2024-07-02 04:18] LABS: Blood Urea Nitrogen 19 mg/dl (9-20); Calcium 8.1 mg/dl (8.4-10.2); Carbon Dioxide 18 mmol/L (22-30); Chloride 111 mmol/L (98-107); Estimated Creatinine Clearance 59 ml/min; Glucose 142 mg/dl (70-99); Magnesium 2.3 mg/dl (1.6-2.3); Potassium 4.3 mmol/L (3.5-5.1); Sodium 139 mmol/L (135-145); eGFR > 60.00
[2024-07-02] MEDS: TORADOL 15 MG IV ×2 (04:38→19:46)
[2024-07-02] MEDS: APRESOLINE 10 MG IV (04:42)
[2024-07-02 05:54] LABS: Glucose - Point of Care 103 mg/dl (70-99)
--- NOTE | 2024-07-02 05:55 | W.PN.CT ---
Today's Communication / Plan
-
-pod #1
-extubated uneventfully @8:35 pm
-drips: Cardene 2.5 (for BP and radial graft), Nitro 55, Insulin.
-started po Norvasc on 07/01 pm for radial graft
-gave iv Hydralazine @ 4:45 am and 2.5 mg of Norvasc @ 6am for HTN
-CT outputs: 2 meds 110/140, L pleur 85/125 in 12/24 hrs
-preop was hypertensive upto 200s with bradycardia in high 40s -tolerated Toprol 12.5 bid preop, required Hydralazine and Losartan.
-L hand post radial artery harvest with edema, intact but decreased sensation, good cap refill, warm, + Ulnar and palmar pulses by Doppler- felt better with elevating the arm to decrease swelling-monitor
-wean off drips and deline
-d/c Baxter (hx BPH)
-d/c insulin
-current meds (ASA, Plavix, Norvasc, Lipitor, Amio, Lopressor 12.5 bid, Flomax 0.8 hs, Protonix)
-encourage IS, OOB
Assessment / Plan
-
- NSTEMI/ mv-CAD - s/p CABG x4 (In situ LUCERO to LAD, Ao to L Radial to OM, Ao to RSVG to High diagonal, Ao to RSVG to RPDA); Endoscopic L radial artery and R lower extremity vein harvesting; LAAE [45 mm device] by Dr. Carrera on 07/01/24, pod #1
- Intraop BARBARA: LVEF 60% preop and postop with no wma. He he did have a mild degree of aortic valve insufficiency and a mild degree of mitral valve insufficiency which remained unchanged. His left atrial appendage was verified to be free of any
thrombus or debris preoperatively and found to be totally occlusive postoperatively.
- NSTEMI
- Multivessel coronary disease status post PCI and stenting in the past
- Hypertension
- Hyperlipidemia
- Sinus bradycardia preop high 40s-50s
- Mild AI
- Mild MR/TR
- BPH
- Acute postop blood loss anemia - stable without transfusion
- Acute postop atelectasis
- Acute postop hypovolemia with subsequent hypervolemia
Discussed patient care with: Nursing and Care Team
Subjective
-
Date of Service: July 01, 2024
Objective Data
-
Lab Results
07/01/24 20:57
07/01/24 16:23
PT 16.8 Sec (11.4-14.6) H 07/01/24 16:23
INR 1.31 07/01/24 16:23
APTT 32.3 Sec (23.4-35.0) 07/01/24 16:23
Vital Signs
Vital Signs
Temp Pulse Resp BP Pulse Ox
99.5 F 62 17 113/62 100
07/01/24 22:09 07/01/24 22:05 07/01/24 22:09 07/01/24 22:00 07/01/24 22:09
CT Intake/Output/Weight
07/01/24 07/01/24 07/02/24
06:59 18:59 06:59
Intake Total 1220.9 / 1363.3 142.4 / 1363.3
Output Total 275 / 570 295 / 570
Balance 945.9 / 793.3 -152.6 / 793.3
SaO2: 100
Physical Exam
-
General: Awake and AOx3
Cardiovascular: Regular rate & rhythm, No Murmurs and Rub
Respiratory: Decreased Breath Sounds
Sternum: Stable
Incision: Clean, Dry and Intact
Extremities: Other (L hand with 1-2+ edema, warm, intact but decreased sensation, good capillary refill, + ulnar and palmar pulses by Doppler. R foot with 1+ edema (s/p EVH), DP by Doppler. L foot: no edema, 2+ palpable DP)
Abdomen: soft, nontender, nondistended, + decreaesed bowel sounds
Data Reviewed
-
Lab Results: Results Reviewed
Medications: Active Meds Reviewed
Chest X-Ray: Report Reviewed and Image Reviewed
ECG: Report Reviewed and Image Reviewed
[2024-07-02] MEDS: NORVASC 2.5 MG PO ×2 (06:12→07:48)
[2024-07-02] MEDS: TYLENOL 1000 MG PO ×3 (06:13→21:33)
--- NOTE | 2024-07-02 06:47 | PTCARENOTE ---
Baxter D/C. Attempted to get OOB to chair. Feeling lightheaded and nauseous and placed back into bed.
[2024-07-02] MEDS: NEURONTIN 100 MG PO ×3 (07:47→21:33)
[2024-07-02] MEDS: MAGNESIUM OXIDE 500 MG PO ×2 (07:47→20:19)
[2024-07-02] MEDS: LOPRESSOR 12.5 MG PO ×2 (07:47→19:46)
[2024-07-02] MEDS: PROTONIX 40 MG PO (07:47)
[2024-07-02] MEDS: SENOKOT-S 1 TABLET PO ×2 (07:47→19:46)
[2024-07-02] MEDS: ANCEF 5 IV ×2 (07:48→14:08)
[2024-07-02] MEDS: LOW STRENGTH ASPIRIN 81 MG PO (07:48)
[2024-07-02] MEDS: PACERONE 200 MG PO ×3 (07:48→21:33)
[2024-07-02] MEDS: LIDOCAINE 4% PATCH 1 PATCH TOPICAL (07:48)
[2024-07-02] MEDS: PLAVIX 75 MG PO (07:48)
[2024-07-02 07:59] LABS: B.E. - POC -3.2 mmol/L; Glucose - POC 152 mg/dl (70-99); HCO3 - POC 22 mmol/L (21-28); Hematocrit - POC 28 % PCV (42-52); Hemodilution- POC Yes; Hemoglobin Calculated - POC 9.5; Ionized Calcium - POC 1.26 mmol/L (1.15-1.33); Lactate - POC < 0.30 mmol/L (0.36-0.75); PCO2 - POC 37 mmHg (35-48); PO2 - POC 410 mmHg (83-108); Potassium - POC 3.9 mmol/L (3.5-5.1); Sodium - POC 142 mmol/L (136-145); Specimen Type - POC Arterial; pH - POC 7.37 (7.35-7.45)
[2024-07-02] MEDS: BACTROBAN 2% OINTMENT 1 APPLIC NASAL ×2 (08:00→20:19)
--- NOTE | 2024-07-02 08:00 | PTCARENOTE ---
Addendum entered by Caprice Mazariegos RN 07/02/24 13:32:
R groin RN ACUTE DIALYSIS with surgical glue
Original Note:
Received handoff report from nightshift RN. Pt in bed at this time. Aox4; NSR on monitor + rub noted, V wires hooked to pacer box, box checked- 50/5/5; pulses palpable on R radial, L ulnar and b/l DPs. 98% on 4L NC, patient able to be weaned
gradually to RA, satting 94%. Pt states 2/10 pain at this time, lidocaine patch applied on either side of sternal incision. Lungs diminished. meds CT and L pleural CT to -20 suction, no crepitus, airleak or tidaling noted at this time. Patient DTV
by 1220. 40 lasix given per order. Cardine gtt weaned off and nitro gtt able to be weaned off this morning, SBP 90s-100s. Sternal incision RN ACUTE DIALYSIS, R groin 4x4/ tegaderm and soft, CDI, L radial graft site BIBIANA wrapped, CDI, and RLE graft site BIBIANA
wrapped, CDI. R radial ART line d/c'd and SLIC d/c's per order. I/Os charted. Pt OOB with cardiac rehab and nursing staff, tolerated well. All needs met at this time, call mahoney within reach.
--- NOTE | 2024-07-02 08:08 | W.PN.ANS.POP ---
Anesthesia Post Operative
- Anesthesia Post Op Note
Vital Signs Stable-See Nursing Note: Yes
Airway Patent: Yes
Adequate Pain Control: Yes
Change in Mental Status: No
Current Postoperative Nausea & Vomiting: No
Anesthesia Complications: No
General Anesthetic Recall: No
Unplanned Admission: No
Post Op Hydration Adequate: Yes
- -
Pt awake/alert. Resting with no anesthesia related c/o at time of post op visit. VSS, no N/V.
[2024-07-02 08:09] LABS: Glucose - Point of Care 108 mg/dl (70-99)
--- NOTE | 2024-07-02 08:51 | W.PN.CD ---
Today's Communication / Plan
-
cont ASA, Plavix
trend tele
Impression / Plan
-
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
#NSTEMI/Multi vessel CAD s/p CABG 07/01
-CABG x4 (In situ LUCERO to LAD, Ao to L Radial to OM, Ao to RSVG to High diagonal, Ao to RSVG to RPDA
-BARBARA: EF 60-65%
-EKG and tele: NSR
-ASA, Plavix, metoprolol, statin
#HTN
-currently on metoprolol and amlodipine
-assess to add back losartan as he recovers from OR
#HLD
-Chronic, stable.
-Total cholesterol = 261, LDL = 180, HDL = 65, Triglycerides = 81.
-High dose, high potency statin.
-Goal LDL < 55.
#BPH
-Chronic, stable.
-Continue tamsulosin.
DATA:
CT Chest, 06/30/2024:
IMPRESSION:
1. SEVERE CALCIFIC ATHEROSCLEROTIC PLAQUE in the CORONARY ARTERIES.
2. Mild calcific atherosclerotic plaque and tortuosity of the thoracic aorta.
3. Mild cardiomegaly.
4. Mild bilateral bronchitis.
5. Mild subpleural subsegmental atelectasis and scarring in the basilar segments of the lower lobes and additional bands of scarring in the right lower and middle lobes.
6. Minimal bilateral pleural effusions.
7. Large 7.6 cm left renal cyst containing a large 2.8 cm calcification.
Carotid Artery Duplex, 06/30/2024:
IMPRESSION: Soft plaque distal right common carotid artery and bulb. Velocity profiles consistent with less than 50% bilateral internal carotid artery stenosis. Antegrade flow bilateral vertebral arteries.
Physical Exam
Vital Signs/Labs
Vital Signs
Temp Pulse Resp BP Pulse Ox
97.7 F 73 15 118/62 97
07/02/24 08:00 07/02/24 08:00 07/02/24 08:00 07/02/24 08:00 07/02/24 08:00
07/01/24 07/02/24 07/03/24
06:59 06:59 06:59
Actual Weight 64.8 kg 65.4 kg
07/02/24 03:41
07/02/24 03:41
PT 16.8 Sec (11.4-14.6) H 07/01/24 16:23
INR 1.31 07/01/24 16:23
APTT 32.3 Sec (23.4-35.0) 07/01/24 16:23
Magnesium 2.3 mg/dl (1.6-2.3) 07/02/24 03:41
Triglycerides 81 mg/dl (10-149) 06/30/24 05:54
LDL Cholesterol, Calc 180 mg/dl 06/30/24 05:54
VLDL Cholesterol, Calc 16 mg/dl (0-30) 06/30/24 05:54
HDL Cholesterol 65 mg/dl 06/30/24 05:54
Physical Exam
Constitutional: No acute distress and Comfortable
EENT: Moist mucous membranes
Cardiovascular: Rhythm & rate is regular and JVD pressure is normal
Respiratory: Respiratory effort normal
Neuro/Psych: Alert and Oriented
Data Reviewed
-
Date of Service: July 02, 2024
EKG: Other (Tele: SR/SB 50s-60s)
Labs: Labs Reviewed by me
[2024-07-02] MEDS: LASIX 40 MG IV (09:01)
[2024-07-02 10:22] LABS: Glucose - Point of Care 91 mg/dl (70-99)
[2024-07-02] MEDS: ROXICODONE 5 MG PO ×2 (10:28→16:57)
[2024-07-02 10:56] LABS: Glucose - Point of Care 94 mg/dl (70-99)
--- NOTE | 2024-07-02 11:14 | CM ---
Chart reviewed. Patient is OOB sitting in the chair. Patient is independent of ADLS, lives alone but his daughter is close by and will be staying with the patient when he is medically stable for discharge. Patient and his daughter were scheduled
to go on vacation on July 08. Because of surgery patient had to cancel his vacation. Patient requested a letter for him and his daughter to give to the speech language pathologist travel. Patient lives in a [address], [address], 0 [address]. Plan is for the patient to return
home with his daughter and CT Transitional RN. CM to follow
[2024-07-02] MEDS: NOVOLOG FLEXPEN 4 UNITS SC (11:19)
--- NOTE | 2024-07-02 12:00 | PTCARENOTE ---
Pt OOB to chair for breakfast, no nausea noted at this time. Insulin gtt titrated per protocol, see med titrations. pt c/o 4/10 L hand pain, PRN martha given with positive effect. Pt unable to void, bladder scanned for 700cc, provider made aware,
flomax ordered and given and patient back to bed with Ax2 for straight cath. L pleural CT d/c'd per order at this time as well. All needs met, call mahoney within reach. Family visiting.
--- NOTE | 2024-07-02 12:23 | W.PN.INTV ---
Addendum entered and electronically signed by Darling Gallegos MD 07/02/24 21:12:
Patient transferred out of ICU. Aerodynamics Professor service will sign off.
Original Note:
Today's Communication / Plan
Recommendations
- Continue incentive spirometry
- Titrate insulin infusion per protocol
Assessment
-
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 He had ongoing pain for about 2 weeks time
prior to his presentation. In the hospital he was noted to have mildly elevated troponin and noted to have non-ST elevation MS. He was taken to [facility] and noted to have multivessel coronary artery disease with in-stent restenosis of his LAD and
RCA stents. LV function was noted to be normal and he was transferred to [facility] for consideration for coronary artery bypass graft. Cardiology and CT surgery evaluated the patient and he was taken to the OR today for surgical
revascularization. Postsurgery, patient was brought to cardiovascular ICU and sourcing consultant consultation was requested for further input.
74 y/o patient with NSTEMI and multivessel coronary artery disease is S/p CABG x4 and left atrial appendage exclusion, POD #1
Off Pressors now
ECHO reviewed with normal EF
PA catheter removed, Cordis in place
Management of chest tubes per primary service
Extubated and saturating well on 2 L O2
Last ABG 7.4, 31. 143
No prior history of pulmonary disease. No h/o smoking
Spirometry reviewed, normal
Can add nebulizers if needed
Aspiration precautions
Encouraged incentive spirometry, OOB/ambulation/early mobility
Advance diet as tolerated following extubation
Monitor critical I/O's
Baxter/chest tube output
Hb/platelets postoperatively, slight own trend
Trend CBC for now
Can transfuse if indicated for Hb <7, plt <50 in surgical patients
DVT prophylaxis including SCDs
Still on insulin infusion, anticipate another day in ICU
Transition to SQ/off as indicated per team
Critical Care time 42 mins -- The patient is admitted for acute critical illness for the treatment of vital organ failure and/or prevention of further life-threatening conditions. Total care includes time spent in review of history, physical exam,
medications, hemodynamic/ventilator parameters, laboratory data, imaging and discussion with house staff, pharmacy, respiratory therapy, band lining bander, and nursing.
Data:
Spirometry 06/2024: FFEV1 89%, FVC 95%. FEV1/FVC 71. Normal spirometry
BARBARA 06/2024: Normal biventricular systolic function with no wall motion abnormalities. The
LVEF is 60-65% by visual inspection.
Mild mitral regurgitation.
Mild to moderate aortic insufficiency.
Normal tricuspid valve.
Grade III atheromatous disease of the aortic arch is present.
Normal left atrial appendage
CT Chest 06/2024: 1. SEVERE CALCIFIC ATHEROSCLEROTIC PLAQUE in the CORONARY ARTERIES.
2. Mild calcific atherosclerotic plaque and tortuosity of the thoracic aorta.
3. Mild cardiomegaly.
4. Mild bilateral bronchitis.
5. Mild subpleural subsegmental atelectasis and scarring in the basilar segments of the lower lobes and additional bands of scarring in the right lower and middle lobes.
6. Minimal bilateral pleural effusions.
7. Large 7.6 cm left renal cyst containing a large 2.8 cm calcification
Cardiac cath 06/2024: (Merrill Hurtado). Multivessel CAD, in-stent restenosis of his LAD and RCA stents
Subjective Dataa
Subjective Data
Date of Service:
Date of Service: July 02, 2024
Subjective:
Patient comfortably sitting in chair, in no acute distress.
Review of Systems
Genitourinary: Other (All 14 systems reviewed and negative except as stated above in the history of present illness. Well-controlled expected postop pain)
Objective Data
Data Reviewed
Vital Signs / I&O / Oxygen:
Vital Signs
Temp Pulse Resp BP Pulse Ox
97.9 F 72 15 112/61 97
07/02/24 12:03 07/02/24 12:03 07/02/24 12:03 07/02/24 12:03 07/02/24 12:03
Intake and Output
07/01/24 07/02/24 07/03/24
06:59 06:59 06:59
Intake Total 480 / 480 1666.1 / 1666.1 87.3 / 87.3
Output Total 980 / 980 108 / 108
Balance 480 / 480 686.1 / 686.1 -20.7 / -20.7
SaO2 [CPAP] 98
SaO2 [SIMV] 96
SaO2 97
Nasal Cannula flow liters per 2
minute
Physical Exam
General: Comfortable
HEENT: Normocephalic
Cardiovascular: S1-S2
Respiratory: Clear and Non-Labored Respirations
GI: Soft and Non Distended
Neurology: Awake and Alert
Skin: Warm
Labs/Micro/Reports
Lab Data
07/02/24 03:41
07/02/24 03:41
Laboratory Results
07/01/24 07/01/24
16:23 19:53
PT 16.8 H
INR 1.31
APTT 32.3
pH 7.42 7.44
pCO2 32 L 31 L
pO2 146 H 143 H
HCO3 20.8 L 21.1
O2 Delivery Level
Microbiology
06/30/24 05:54 Nose MRSA Screen - Final
No Methicillin Resistant Staphylococcus aureus isolated.
[2024-07-02] MEDS: FLOMAX 0.4 MG PO ×2 (12:37→19:49)
[2024-07-02 12:51] LABS: Glucose - Point of Care 111 mg/dl (70-99)
[2024-07-02] MEDS: FERRLECIT 110 MG IV (14:08)
[2024-07-02] MEDS: NOVOLOG FLEXPEN SC (14:32)
[2024-07-02] MEDS: NSS IV (14:33)
[2024-07-02 15:11] LABS: Glucose - Point of Care 64 mg/dl (70-99)
[2024-07-02 15:11] LABS: Glucose - Point of Care 65 mg/dl (70-99)
[2024-07-02] MEDS: DEXTROSE 50% SYRINGE 12.5 GRAMS IV (15:20)
[2024-07-02 15:35] LABS: Glucose - Point of Care 130 mg/dl (70-99)
--- NOTE | 2024-07-02 15:56 | PTCARENOTE ---
Patient resting in bed at this time. Does not c/o pain. Med chest tube -20 suction, no crepitus or airleak, with minimal output. Pt DTV by 1830. At 1500, patient hypoglycemic with blood sugar 65, 12.5 grams IV dextrose 50% given per order,
bloodsugar up to 130 after. Insulin gtt d/c'd per protcol at 1630. All needs met at this time, call mahoney within reach.
[2024-07-02] MEDS: LIPITOR 40 MG PO (16:54)
--- NOTE | 2024-07-02 18:40 | PTCARENOTE ---
Pt OOB with Ax2, walked out of room into hallway and back, in chair for dinner. Pt c/o 5/10 sternal incision pain, PRN martha given. Pt unable to void by 1830, bladder scanned for >400 and straight cathed per protocol for 350cc. L arm and R leg BIBIANA
wrapped d/c'd at 1600 per protocol. Pt DTV by 0030. VSS at this time. All needs met at this time, call mahoney within reach. Handoff report given to nightshift RN.
[2024-07-02] MEDS: NORVASC 5 MG PO (19:46)
--- NOTE | 2024-07-02 20:00 | PTCARENOTE ---
Received pt from [email or web address]. Pt is POD #1 from CABGx4 and JOZEF clip with Dr Carrera. Pt is AAOx4, resting in bed, states pain is 4/10, see MAR. NSR on monitor, VSS. Hear sounds audible, rub present, right radial, left ulnar, b/l dp palpable, trace right
arm edema, temp epicardial V-wires set to VVI 50/5/5. lungs diminished throughout, spo2 92% on RA, x2 MS CT to -20 wall suction, no air leaks, no tidaling. +BS x4 quadrants, abdomen soft, non tender. pt is due to void at 0030. surgical sites
maintained. right IJ cordis and PIV maintained. CHG bath provided, new gown and tele leads. call mahoney within reach. will continue to monitor.
--- NOTE | 2024-07-02 23:50 | PTCARENOTE ---
Pt assessment unchanged NSR on monitor. VSS. Pt is due to void. pt encouraged to void but cannot. bladder scanned for 222ml of urine. Per CVPA will bladder scan again at 0400.
[2024-07-03] VITALS (21 sets, daily range): BP systolic 118–159; BP diastolic 62–81; PULSE 85; O2SAT 95–98; BMI 23.3
--- NOTE | 2024-07-03 01:30 | W.PN.CT ---
Today's Communication / Plan
-
-pod #2
-gtts off (levo/nitro/cardene)
-started po Norvasc on 07/01 pm for radial graft, up to BID dosing 5 mg
-CT outputs: 2 meds 45/176 in 12/24 hrs
-L hand post radial artery harvest with edema, improving. Elevate LUE.
-required straight cath x2, may need garcia if recurrent. continued on flomax.
-current meds (ASA, Plavix, Norvasc, Lipitor, Amio, Lopressor 12.5 bid, Flomax 0.8 hs, Protonix)
-multimodal pain management
-encourage IS, OOB
Assessment / Plan
-
- NSTEMI/ mv-CAD - s/p CABG x4 (In situ LUCERO to LAD, Ao to L Radial to OM, Ao to RSVG to High diagonal, Ao to RSVG to RPDA); Endoscopic L radial artery and R lower extremity vein harvesting; LAAE [45 mm device] by Dr. Carrera on 07/01/24, pod #2
- Intraop BARBARA: LVEF 60% preop and postop with no wma. He he did have a mild degree of aortic valve insufficiency and a mild degree of mitral valve insufficiency which remained unchanged. His left atrial appendage was verified to be free of any
thrombus or debris preoperatively and found to be totally occlusive postoperatively.
- NSTEMI
- Multivessel coronary disease status post PCI and stenting in the past
- Hypertension
- Hyperlipidemia
- Sinus bradycardia preop high 40s-50s
- Mild AI
- Mild MR/TR
- BPH
- Acute postop blood loss anemia - stable without transfusion
- Acute postop atelectasis
- Acute postop hypovolemia with subsequent hypervolemia
Subjective
-
Date of Service: July 03, 2024
Objective Data
-
PT 16.8 Sec (11.4-14.6) H 07/01/24 16:23
INR 1.31 07/01/24 16:23
APTT 32.3 Sec (23.4-35.0) 07/01/24 16:23
Vital Signs
Vital Signs
Temp Pulse Resp BP Pulse Ox
98.7 F 73 16 133/67 95
07/02/24 23:46 07/02/24 23:00 07/02/24 23:46 07/02/24 19:43 07/02/24 23:46
CT Intake/Output/Weight
07/02/24 07/02/24 07/03/24
06:59 18:59 06:59
Intake Total 445.2 / 1666.1 150.2 / 170.2 20 / 170.2
Output Total 705 / 980 1178 / 1198 20 / 1198
Balance -259.8 / 686.1 -1027.8 / -1027.8 0 / -1027.8
SaO2: 95
Physical Exam
-
General: Awake and Oriented
Cardiovascular: Murmur and No Rub
Respiratory: Clear and Decreased Breath Sounds
Sternum: Stable
Incision: Clean, Dry and Intact
Extremities: No Edema and No Erythema
LUE with swelling, +2 rad pulse, sensation intact
Data Reviewed
-
Lab Results: Results Reviewed
Medications: Active Meds Reviewed
Chest X-Ray: Report Reviewed
ECG: Report Reviewed
--- NOTE | 2024-07-03 03:00 | PTCARENOTE ---
Pt rang call mahoney at 0300 to attempt to void. pt unable to void. bladder scanned for 300mls. will continue to monitor per protocol.
[2024-07-03 03:49] LABS: Hematocrit 27.2 % (39.0-52.0); Hemoglobin 9.3 g/dL (13.0-18.0); Mean Corp Hgb Conc. 34.2 g/dL (33.0-37.0); Mean Corpuscular Hgb 29.2 pg (27.0-31.0); Mean Corpuscular Volume 85.5 fL (80.0-94.0); Platelet Count 128 10^3/uL (130-400); Red Blood Cell Count 3.18 10^6/uL (4.70-6.10); Red Cell Dist. Width 14.3 % (11.5-14.5); White Blood Cell Count 11.2 10^3/uL (4.8-10.8)
[2024-07-03 04:00] LABS: Blood Urea Nitrogen 29 mg/dl (9-20); Calcium 8.1 mg/dl (8.4-10.2); Carbon Dioxide 23 mmol/L (22-30); Chloride 107 mmol/L (98-107); Estimated Creatinine Clearance 60 ml/min; Glucose 132 mg/dl (70-99); Magnesium 2.3 mg/dl (1.6-2.3); Potassium 4.2 mmol/L (3.5-5.1); Sodium 137 mmol/L (135-145); eGFR > 60.00
[2024-07-03] MEDS: TYLENOL 1000 MG PO ×3 (06:46→22:32)
--- NOTE | 2024-07-03 08:00 | PTCARENOTE ---
pt received from previous RN, oriented, OOB in chair. SR on the monitor, HR 70s-80s. V wires in place, VVI 50/5. SBP 100-120s. palpable pulses, +1 UE and LE edema. pt on RA, 94-96% POX. lungs clear, diminished in bases. IS encouraged. CTx2, no air
leak or crepitus noted. pt abdomen s/n, denies n/v. diet tolerated well. Baxter in place, clear yellow urine. 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 chest tube site c/d/i. R groin puncture UMER. RLE incision UMER. LUE incision UMER. RIJ cordis maintained.
PIV. see worklist for VS, I&O, and assessment.
--- NOTE | 2024-07-03 08:18 | W.PN.CD ---
Today's Communication / Plan
-
continue ASA, Plavix, metoprolol, statin
trend tele
Impression / Plan
-
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
#NSTEMI/Multi vessel CAD s/p CABG 07/01
-CABG x4 (In situ LUCERO to LAD, Ao to L Radial to OM, Ao to RSVG to High diagonal, Ao to RSVG to RPDA
-BARBARA: EF 60-65%
-EKG and tele: NSR
-continue ASA, Plavix, metoprolol, statin
#HTN
-currently on metoprolol and amlodipine
-assess to add back losartan as he recovers from OR
#HLD
-Chronic, stable.
-Total cholesterol = 261, LDL = 180, HDL = 65, Triglycerides = 81.
-High dose, high potency statin. recommend crestor 40mg daily
-Goal LDL < 55.
#BPH
-Chronic, stable.
-Continue tamsulosin.
DATA:
CT Chest, 06/30/2024:
IMPRESSION:
1. SEVERE CALCIFIC ATHEROSCLEROTIC PLAQUE in the CORONARY ARTERIES.
2. Mild calcific atherosclerotic plaque and tortuosity of the thoracic aorta.
3. Mild cardiomegaly.
4. Mild bilateral bronchitis.
5. Mild subpleural subsegmental atelectasis and scarring in the basilar segments of the lower lobes and additional bands of scarring in the right lower and middle lobes.
6. Minimal bilateral pleural effusions.
7. Large 7.6 cm left renal cyst containing a large 2.8 cm calcification.
Carotid Artery Duplex, 06/30/2024:
IMPRESSION: Soft plaque distal right common carotid artery and bulb. Velocity profiles consistent with less than 50% bilateral internal carotid artery stenosis. Antegrade flow bilateral vertebral arteries.
Physical Exam
Vital Signs/Labs
Vital Signs
Temp Pulse Resp BP Pulse Ox
98.6 F 73 16 133/67 94
07/03/24 04:00 07/02/24 23:00 07/03/24 04:00 07/02/24 19:43 07/03/24 04:00
07/02/24 07/03/24 07/04/24
06:59 06:59 06:59
Actual Weight 65.4 kg 67.4 kg
07/03/24 03:27
07/03/24 03:27
PT 16.8 Sec (11.4-14.6) H 07/01/24 16:23
INR 1.31 07/01/24 16:23
APTT 32.3 Sec (23.4-35.0) 07/01/24 16:23
Magnesium 2.3 mg/dl (1.6-2.3) 07/03/24 03:27
Triglycerides 81 mg/dl (10-149) 06/30/24 05:54
LDL Cholesterol, Calc 180 mg/dl 06/30/24 05:54
VLDL Cholesterol, Calc 16 mg/dl (0-30) 06/30/24 05:54
HDL Cholesterol 65 mg/dl 06/30/24 05:54
Physical Exam
Constitutional: No acute distress and Comfortable
EENT: Moist mucous membranes
Cardiovascular: Rhythm & rate is regular, Pedal edema is absent, JVD pressure is normal and Systolic murmur absent
Respiratory: Lungs clear to auscul.
Neuro/Psych: AO x 3
Data Reviewed
-
Date of Service: July 03, 2024
EKG: Other (Tele: SR, one V triplet)
Labs: Labs Reviewed by me
[2024-07-03] MEDS: LOW STRENGTH ASPIRIN 81 MG PO (08:56)
[2024-07-03] MEDS: NEURONTIN 100 MG PO ×3 (08:56→22:32)
[2024-07-03] MEDS: LOPRESSOR 12.5 MG PO ×2 (08:56→20:58)
[2024-07-03] MEDS: PLAVIX 75 MG PO (08:56)
[2024-07-03] MEDS: PROTONIX 40 MG PO (08:56)
[2024-07-03] MEDS: SENOKOT-S 1 TABLET PO ×2 (08:56→20:58)
[2024-07-03] MEDS: PACERONE 200 MG PO ×3 (08:56→22:32)
[2024-07-03] MEDS: MAGNESIUM OXIDE 500 MG PO (08:56)
[2024-07-03] MEDS: NORVASC 5 MG PO ×2 (08:56→20:58)
[2024-07-03] MEDS: BACTROBAN 2% OINTMENT 1 APPLIC NASAL ×2 (08:57→20:58)
[2024-07-03] MEDS: LIDOCAINE 4% PATCH 1 PATCH TOPICAL (08:57)
--- NOTE | 2024-07-03 09:27 | W.PN.UPDATE ---
Update Note
Progress Note Update
No pacing noted on telemetry review x 24h. Epicardial Bipolar V-wire removed without difficulty. Bedrest x 1hour. VS q15min x 1 hour.
--- NOTE | 2024-07-03 10:29 | CM ---
Chart reviewed. Patient is indpependent of ADLS, lives alone in a 1 [address], 0 NARESH, 0 DME. Patient's daughter to stay with patient when he returns home. Plan is for the patient to return home with CT Transitional RN. CM to follow
--- NOTE | 2024-07-03 10:49 | PTCARENOTE ---
pt placed back to bed, V wire pulled by RENEE Matias @~0920, q15min VS completed.
Med CTs dc'd @~1030, dressing c/d/i.
--- NOTE | 2024-07-03 12:28 | PTCARENOTE ---
pt VSS, no changes in assessment. OOB to chair for lunch.
[2024-07-03] MEDS: FERRLECIT 110 MG IV (13:46)
--- NOTE | 2024-07-03 16:00 | PTCARENOTE ---
pt VSS, no changes in assessment. pt ambulated entire loop in hallway w/ stand by assist. no c/o pain.
[2024-07-03] MEDS: NSS 500 IV (16:14)
[2024-07-03] MEDS: CRESTOR 40 MG PO (18:14)
[2024-07-03] MEDS: MAGNESIUM OXIDE PO (20:53)
--- NOTE | 2024-07-03 21:00 | PTCARENOTE ---
Patient received resting in bed watching television. Patient A+A+Ox3. No neurological deficits noted. No c/o headache, dizziness or lightheadedness. Room air. SpO2 93%. Chest tube dressing intact. No c/o SOB. Sinus Rhythm. Heart rate 70's.
Blood pressure 137/68 (88). Patient with no c/o chest pain, pressure or discomfort. Normoactive bowel sounds. No BM. Baxter catheter intact - 300 ml anju urine. Right I.J. Cordis. Sternal incision - Intact - Surgical adhesive. Right groin
puncture site intact. Right knee incision intact - Surgical adhesive. Blister noted distal to knee on right shelton region. Left radial site - Incision intact - Surgical adhesive - Positive Ulnar pulse - Edema - Positive circulation, sensation and
mobility to left upper extremity. Patient with no c/o back or flank pain. Assessment as documented.
[2024-07-03] MEDS: FLOMAX 0.8 MG PO (22:32)
[2024-07-04] VITALS (9 sets, daily range): BP systolic 127–161; BP diastolic 67–77; PULSE 74; O2SAT 96–97; BMI 23.3
--- NOTE | 2024-07-04 | PTCARENOTE ---
Patient sleeping without difficulty. No further changes from previous assessment.
--- NOTE | 2024-07-04 00:53 | W.PN.CT ---
Today's Communication / Plan
-
Plan:
-No major issues overnight. Hemodynamically and neurologically intact
-Garcia was reinserted for urinary retention. Flomax restarted
-Consider d/c of garcia with voiding trials. 24hr u/o 1700 mL
-Norvasc for radial graft
-Cont. current meds (ASA, Plavix, Norvasc, Crestor, Amio, Lopressor 12.5 bid, Flomax 0.8 hs, Protonix)
-Encourage use of IS
-OOB into chair/Ambulate
-Home likely tomorrow
Assessment / Plan
-
- NSTEMI/ mv-CAD - s/p CABG x4 (In situ LUCERO to LAD, Ao to L Radial to OM, Ao to RSVG to High diagonal, Ao to RSVG to RPDA); Endoscopic L radial artery and R lower extremity vein harvesting; LAAE [45 mm device] by Dr. Carrera on 07/01/24, pod #3
- Intraop BARBARA: LVEF 60% preop and postop with no wma. He he did have a mild degree of aortic valve insufficiency and a mild degree of mitral valve insufficiency which remained unchanged. His left atrial appendage was verified to be free of any
thrombus or debris preoperatively and found to be totally occlusive postoperatively.
- NSTEMI
- Multivessel coronary disease status post PCI and stenting in the past
- Hypertension
- Hyperlipidemia
- Sinus bradycardia preop high 40s-50s
- Mild AI
- Mild MR/TR
- BPH
- Acute postop blood loss anemia - stable without transfusion
- Acute postop thrombocytopenia, stable without active bleed
- Acute postop atelectasis
- Acute postop hypovolemia with subsequent hypervolemia
- Acute postop urinary retention S/P garcia reinsertion on POD#2
Discussed patient care with: Cardiology, Nursing, Respiratory Therapy, Pharmacy and Care Team
Subjective
-
Date of Service: July 04, 2024
Pt c/o mild incisional pain, otherwise feels well
Objective Data
-
PT 16.8 Sec (11.4-14.6) H 07/01/24 16:23
INR 1.31 07/01/24 16:23
APTT 32.3 Sec (23.4-35.0) 07/01/24 16:23
Vital Signs
Vital Signs
Temp Pulse Resp BP Pulse Ox
98.6 F 67 16 126/74 93
07/03/24 22:25 07/04/24 00:00 07/03/24 22:25 07/03/24 22:32 07/03/24 22:25
CT Intake/Output/Weight
07/03/24 07/03/24 07/04/24
06:59 18:59 06:59
Intake Total 20 / 170.2 200 / 509 309 / 509
Output Total 50 / 1228 810 / 1110 300 / 1110
Balance -30 / -1057.8 -610 / -601 9 / -601
SaO2: 93 (RA)
Physical Exam
-
General: Awake, Oriented and AOx3
Cardiovascular: Regular rate & rhythm, No Murmurs, No Rub and No Gallop
Respiratory: Decreased Breath Sounds (at bases, otherwise clear)
Sternum: Stable
Incision: Clean, Dry, Intact and Dressing Intact
Extremities: Other (+trace edema)
Data Reviewed
-
Lab Results: Results Reviewed
Medications: Active Meds Reviewed
Chest X-Ray: Report Reviewed and Image Reviewed
ECG: Report Reviewed and Image Reviewed
[2024-07-04] MEDS: TYLENOL 1000 MG PO ×3 (04:55→22:19)
--- NOTE | 2024-07-04 05:00 | PTCARENOTE ---
Patient A+A+Ox3. No neurological deficits noted. AM lab work collected and sent. G bath/back rub. Linens changed. OOB to chair. Standing scale weight 67.5 kg. Assessment/Interventions as documented.
[2024-07-04 05:09] LABS: Hematocrit 25.4 % (39.0-52.0); Hemoglobin 8.6 g/dL (13.0-18.0); Mean Corp Hgb Conc. 33.9 g/dL (33.0-37.0); Mean Corpuscular Hgb 28.9 pg (27.0-31.0); Mean Corpuscular Volume 85.2 fL (80.0-94.0); Mean Platelet Volume 12.6 fL (7.4-10.4); Platelet Count 117 10^3/uL (130-400); Red Blood Cell Count 2.98 10^6/uL (4.70-6.10); Red Cell Dist. Width 14.4 % (11.5-14.5); White Blood Cell Count 8.8 10^3/uL (4.8-10.8)
[2024-07-04 05:32] LABS: Blood Urea Nitrogen 24 mg/dl (9-20); Calcium 7.7 mg/dl (8.4-10.2); Carbon Dioxide 25 mmol/L (22-30); Chloride 106 mmol/L (98-107); Estimated Creatinine Clearance 66 ml/min; Glucose 106 mg/dl (70-99); Magnesium 2.1 mg/dl (1.6-2.3); Potassium 4.4 mmol/L (3.5-5.1); Sodium 135 mmol/L (135-145); eGFR > 60.00
[2024-07-04] MEDS: CALCIUM GLUCONATE 100 IV (06:15)
--- NOTE | 2024-07-04 08:00 | PTCARENOTE ---
Patient received from night clerk RN; AAOx3, responds spontaneously to RN and follows commands; VSS; NSR on monitor; Trace anasarca and +1 B/L LE edema; +2 DP, left ulnar, and right radial pulses; Shallow respirations; SpO2 94-98% on RA; No BM since
surgery; Baxter catheter draining clear, yellow urine - d/c'd at 0755 and DTV; Surgical sites intact; PIVx1 #20 right hand: RIJ Cordis with KVO infusing; See nursing documentation for further details
[2024-07-04] MEDS: LOW STRENGTH ASPIRIN 81 MG PO (09:00)
[2024-07-04] MEDS: NORVASC 5 MG PO ×2 (09:00→19:43)
[2024-07-04] MEDS: SENOKOT-S 1 TABLET PO ×2 (09:00→19:43)
[2024-07-04] MEDS: NEURONTIN 100 MG PO ×3 (09:00→22:19)
[2024-07-04] MEDS: PLAVIX 75 MG PO (09:00)
[2024-07-04] MEDS: PACERONE 200 MG PO ×3 (09:00→22:19)
[2024-07-04] MEDS: LOPRESSOR 12.5 MG PO ×2 (09:00→19:43)
[2024-07-04] MEDS: BACTROBAN 2% OINTMENT 1 APPLIC NASAL ×2 (09:01→19:43)
[2024-07-04] MEDS: LASIX 40 MG IV (09:01)
[2024-07-04] MEDS: LIDOCAINE 4% PATCH TOPICAL (09:01)
[2024-07-04] MEDS: PROTONIX 40 MG PO (09:01)
--- NOTE | 2024-07-04 10:22 | W.PN.CD ---
Today's Communication / Plan
-
IV diuresis this AM
Ambulate as able
cont post-op care
Impression / Plan
-
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
#NSTEMI/Multi vessel CAD s/p CABG 07/01
-CABG x4 (In situ LUCERO to LAD, Ao to L Radial to OM, Ao to RSVG to High diagonal, Ao to RSVG to RPDA
-BARBARA: EF 60-65%
-EKG and tele: NSR
-continue ASA, Plavix, metoprolol, statin
- diuresis today
#HTN
-currently on metoprolol and amlodipine
-assess to add back losartan as he recovers from OR
#HLD
-Chronic, stable.
-Total cholesterol = 261, LDL = 180, HDL = 65, Triglycerides = 81.
-High dose, high potency statin. recommend crestor 40mg daily
-Goal LDL < 55.
#BPH
-Chronic, stable.
-Continue tamsulosin.
Subjective: feels well is up and walking frequently
DATA:
CT Chest, 06/30/2024:
IMPRESSION:
1. SEVERE CALCIFIC ATHEROSCLEROTIC PLAQUE in the CORONARY ARTERIES.
2. Mild calcific atherosclerotic plaque and tortuosity of the thoracic aorta.
3. Mild cardiomegaly.
4. Mild bilateral bronchitis.
5. Mild subpleural subsegmental atelectasis and scarring in the basilar segments of the lower lobes and additional bands of scarring in the right lower and middle lobes.
6. Minimal bilateral pleural effusions.
7. Large 7.6 cm left renal cyst containing a large 2.8 cm calcification.
Carotid Artery Duplex, 06/30/2024:
IMPRESSION: Soft plaque distal right common carotid artery and bulb. Velocity profiles consistent with less than 50% bilateral internal carotid artery stenosis. Antegrade flow bilateral vertebral arteries.
Physical Exam
Vital Signs/Labs
Vital Signs
Temp Pulse Resp BP Pulse Ox
97.6 F 74 16 129/72 92
07/04/24 07:59 07/04/24 07:56 07/04/24 07:59 07/04/24 07:56 07/04/24 07:59
07/03/24 07/04/24 07/05/24
06:59 06:59 06:59
Actual Weight 148 lb 9.465 oz 148 lb 12.992 oz
07/04/24 04:45
07/04/24 04:45
PT 16.8 Sec (11.4-14.6) H 07/01/24 16:23
INR 1.31 07/01/24 16:23
APTT 32.3 Sec (23.4-35.0) 07/01/24 16:23
Magnesium 2.1 mg/dl (1.6-2.3) 07/04/24 04:45
Triglycerides 81 mg/dl (10-149) 06/30/24 05:54
LDL Cholesterol, Calc 180 mg/dl 06/30/24 05:54
VLDL Cholesterol, Calc 16 mg/dl (0-30) 06/30/24 05:54
HDL Cholesterol 65 mg/dl 06/30/24 05:54
Physical Exam
Constitutional: No acute distress
EENT: Anicteric
Cardiovascular: Rhythm & rate is regular
Respiratory: Respiratory effort normal and Lungs clear to auscul.
GI: Soft
Neuro/Psych: Alert and Oriented
Data Reviewed
-
Date of Service: July 04, 2024
Medical Decision Making: Reviewed Test Results
EKG: Tracing Personally Visualized and interpreted (sr)
Labs: Labs Reviewed by me
--- NOTE | 2024-07-04 12:00 | PTCARENOTE ---
RIJ Cordis removed at bedside by RN; VSS; No complications or bleeding noted; Patient ambulating in hallway; Patient urinating but retaining 500 ml upon PVR - CVNP Polly Zaldivar notified and patient encouraged to increase activity
[2024-07-04] MEDS: MIRALAX 17 GRAMS PO (13:49)
[2024-07-04] MEDS: FERRLECIT 110 MG IV (13:49)
[2024-07-04] MEDS: NSS IV (16:43)
[2024-07-04] MEDS: CRESTOR 40 MG PO (16:44)
--- NOTE | 2024-07-04 18:06 | PTCARENOTE ---
Patient still retaining urine - CVNP Polly Zaldivar notified and PO Miralax ordered; Patient encouraged to keep ambulating in hallways with RN; Poor appetite for dinner; PVR residual 389 after urinating 375 ml of clear, yellow urine - CVNP states no
garcia catheter for now but to keep bladder scanning post void
--- NOTE | 2024-07-04 19:04 | PTCARENOTE ---
Patient transferred to 2252; Patient belongings taken with patient to room; Report given to Wendy REED; Patient's daughter updated regarding room change
--- NOTE | 2024-07-04 21:41 | PTCARENOTE ---
Received patient at change of shift. SR on the monitor, HR in the 70s. Surgical sites intact. Patient ambulating with nurse. No complaints from pt at this time, call mahoney within reach.
[2024-07-04] MEDS: FLOMAX 0.8 MG PO (22:18)
[2024-07-05 04:00] VITALS: BP 134/68
[2024-07-05 04:46] LABS: Hematocrit 25.9 % (39.0-52.0); Mean Corp Hgb Conc. 34.7 g/dL (33.0-37.0); Mean Corpuscular Volume 83.5 fL (80.0-94.0); Mean Platelet Volume 11.7 fL (7.4-10.4); Platelet Count 155 10^3/uL (130-400); Red Cell Dist. Width 14.5 % (11.5-14.5); White Blood Cell Count 7.2 10^3/uL (4.8-10.8)
[2024-07-05 04:59] LABS: Blood Urea Nitrogen 26 mg/dl (9-20); Carbon Dioxide 25 mmol/L (22-30); Chloride 106 mmol/L (98-107); Estimated Creatinine Clearance 66 ml/min; Glucose 108 mg/dl (70-99); Magnesium 2.1 mg/dl (1.6-2.3); Potassium 4.1 mmol/L (3.5-5.1); Sodium 138 mmol/L (135-145); eGFR > 60.00
[2024-07-05 06:00] VITALS: BMI 23.2
[2024-07-05] MEDS: TYLENOL 1000 MG PO ×2 (06:09→14:18)
--- NOTE | 2024-07-05 06:27 | W.PN.CT ---
Today's Communication / Plan
-
Plan:
-No major issues overnight. Hemodynamically and neurologically intact
-Pt with postop acute urinary retention. Garcia d/c'd yesterday but required straight cath @ midnight as pt unable to fully empty bladder, scanned > 450 mL
-Will assess to see if able to void this AM
-F/U 2-view cxr
-Norvasc for radial graft
-Cont. current meds (ASA, Plavix, Norvasc, Crestor, Amio, Lopressor 12.5 bid, Flomax 0.8 hs, Protonix)
-Encourage use of IS
-OOB into chair/Ambulate
-Home later today vs tomorrow
Assessment / Plan
-
- NSTEMI/ mv-CAD - s/p CABG x4 (In situ LUCERO to LAD, Ao to L Radial to OM, Ao to RSVG to High diagonal, Ao to RSVG to RPDA); Endoscopic L radial artery and R lower extremity vein harvesting; LAAE [45 mm device] by Dr. Carrera on 07/01/24, pod #4
- Intraop BARBARA: LVEF 60% preop and postop with no wma. He he did have a mild degree of aortic valve insufficiency and a mild degree of mitral valve insufficiency which remained unchanged. His left atrial appendage was verified to be free of any
thrombus or debris preoperatively and found to be totally occlusive postoperatively.
- NSTEMI
- Multivessel coronary disease status post PCI and stenting in the past
- Hypertension
- Hyperlipidemia
- Sinus bradycardia preop high 40s-50s
- Mild AI
- Mild MR/TR
- BPH
- Acute postop blood loss anemia - stable without transfusion
- Acute postop thrombocytopenia, stable without active bleed
- Acute postop atelectasis
- Acute postop hypovolemia with subsequent hypervolemia
- Acute postop urinary retention S/P garcia reinsertion on POD#2
Discussed patient care with: Cardiology, Nursing, Respiratory Therapy, Pharmacy and Care Team
Subjective
-
Date of Service: July 05, 2024
Pt c/o mild incisional pain, otherwise feel well
Objective Data
-
Lab Results
07/05/24 04:19
07/05/24 04:19
PT 16.8 Sec (11.4-14.6) H 07/01/24 16:23
INR 1.31 07/01/24 16:23
APTT 32.3 Sec (23.4-35.0) 07/01/24 16:23
Vital Signs
Vital Signs
Temp Pulse Resp BP Pulse Ox
98.7 F 71 18 134/68 95
07/05/24 04:00 07/05/24 04:00 07/05/24 04:00 07/05/24 04:00 07/05/24 04:00
CT Intake/Output/Weight
07/04/24 07/04/24 07/05/24
06:59 18:59 06:59
Intake Total 709 / 909 120 / 120
Output Total 900 / 1710 1325 / 1900 575 / 1900
Balance -191 / -801 -1205 / -1780 -575 / -1780
SaO2: 95 (RA)
Physical Exam
-
General: Awake, Oriented and AOx3
Cardiovascular: Regular rate & rhythm, No Murmurs, No Rub and No Gallop
Respiratory: Decreased Breath Sounds (at bases, otherwise clear)
Sternum: Stable
Incision: Clean, Dry, Intact and Dressing Intact
Extremities: No Edema
Data Reviewed
-
Lab Results: Results Reviewed
Medications: Active Meds Reviewed
Chest X-Ray: Report Reviewed and Image Reviewed
ECG: Report Reviewed and Image Reviewed
--- NOTE | 2024-07-05 07:16 | PTCARENOTE ---
Pt urinated 150 ml clear yellow urine. Post void residual 432. DEMETRIO Durant notified. 1 hour later pt unable to void. Order for straight cath obtained, pt straight cathed for 425ml clear yellow urine.
[2024-07-05 07:46] VITALS: BP 124/67
[2024-07-05] MEDS: LOPRESSOR 12.5 MG PO (09:32)
[2024-07-05] MEDS: NORVASC 5 MG PO (09:32)
[2024-07-05] MEDS: NEURONTIN 100 MG PO (09:32)
[2024-07-05] MEDS: BACTROBAN 2% OINTMENT 1 APPLIC NASAL (09:32)
[2024-07-05] MEDS: LOW STRENGTH ASPIRIN 81 MG PO (09:32)
[2024-07-05] MEDS: PACERONE 200 MG PO (09:32)
[2024-07-05] MEDS: PLAVIX 75 MG PO (09:32)
[2024-07-05] MEDS: PROTONIX 40 MG PO (09:32)
[2024-07-05] MEDS: SENOKOT-S 1 TABLET PO (09:32)
--- NOTE | 2024-07-05 11:20 | W.DCSUMMARY ---
Discharge Summary
Discharge Data
Date of Admission: 06/29/24
Date of Discharge: 07/05/24
-
Pending Results: No
Hospital Course
Primary care physician: Сергей Lopez
Outpatient wireworker supervisor: Jac Matos
Inpatient consultants: [facility] Cardiology, pulmonary shellac polisher
Procedures:
1. CABG x 4, left atrial appendage clip
Primary Diagnosis:
1. NSTEMI, Multivessel Coronary Artery Disease
Secondary Diagnoses:
1. History of PCI and stenting
2. Hypertension
4. Hyperlipidemia
5. Sinus bradycardia
6. BPH
7. Acute postop blood loss anemia -expected
8. Acute postop thrombocytopenia
9. Post op weight gain/fluid retention-expected
10. Acute postop urinary retention S/P garcia reinsertion on POD#2
HPI: 74-year-old male with past medical history of CAD status post PCI x 3 to LAD and RCA and known [employer] of the mid circumflex, was transferred to [facility] on 06/29/24 for CABG evaluation after initially presenting to [facility] on 06/28/24 with chest
pain. 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 Pt c/o exertional 7-8/10 localized substernal chest pain x 10 days, limiting his ability to walk his
dog. Lab work revealed mildly elevated troponin consistent with NSTEMI. Patient underwent a left heart cath on 06/29/24 @ [facility] and was found to have multivessel CAD including in-stent restenosis of his LAD and RCA stents. Pt had TTE done on 06/29/24
which showed LVEF 60-65%, mild to moderate AI, and mild MR/TR
Hospital course: Patient underwent pre-operative testing and was brought to the operating room on 07/01/2024 where he underwent CABG x 4 LUCERO to LAD, left radial to OM, SVG to diagonal, SVG to RPDA, and exclusion of left atrial appendage with #[address] Juan C Carrera. Postprocedure BARBARA reported an EF of 60 to 65% with mild to moderate aortic insufficiency. Patient received no intraoperative blood products and returned to CVICU on Levophed, Precedex, and insulin. Patient had
hypertension postoperatively and was treated with IV nitro, Cardene, and hydralazine. Patient transitioned to oral medications on postoperative day #1. Aspirin and Plavix were initiated. Norvasc was added for radial patency. Patient had Garcia
removed and required straight cath for retention. Flomax was resumed. Patient received diuresis for left upper extremity swelling and weight gain. On postoperative day #2, Lipitor was changed to Crestor per cardiology. Patient required Garcia
reinsertion for postop urinary retention. Postoperative day #3, patient was straight cathed for residual of 100 cc of urine. Subsequently was able to urinate with residuals of less than 300 cc. Therefore Garcia reinsertion was not needed. Patient
ambulated in halls with cardiac rehab and deemed stable for home disposition at discharge. On postoperative day #4, a two-view chest x-ray reported small left pleural effusion and tiny right pleural effusion. Patient's weight on day of discharge
was 67 kg and baseline weight was documented at 65.6 kg. Patient will continue on Lasix 20 mg p.o. daily for 5 days with follow-up chest x-ray and BMP in 1 week. Hemoglobin was 9.0 and creatinine 0.9 on day of discharge. Patient was instructed to
report any difficulty with urination after discharge. Norvasc will continue for 3 months to promote radial graft patency.
Home medication changes:
Stop losartan
Norvasc added for radial graft patency
Lasix 20 mg daily for postop weight gain
Discharge Plan
-
Patient Disposition: Home (Routine Discharge)
Discharge Diagnosis/Procedures: CABG x 4, left atrial appendage cllip
Condition: Good
Diet: Low Cholesterol and 2 Gram Sodium
Activity: No strenuous activity
Driving Restrictions: Not until seen by your Dr
Bathing Restrictions: OK to Shower
Blood Work: bmp in 1 week
Others Tests: CXR in 1 week
Other Services: Cardiac Rehab
Specialty Instructions: Weigh Daily- Call MD for wt gain/loss 3 lbs overnight/5 lbs in 1 week
Activity Restrictions/Additional Instructions:
Please call [facility] to get scheduled for cardiac rehab. P: [phone]
ACTIVITY:
-No strenuous activity: no heavy lifting, pushing, pulling anything over 15 pounds for one month
-continue to use stairs as tolerated
DRIVING RESTRICTIONS:
-No driving for one month or until approved by your surgeon
WOUND CARE:
-Shower daily. Use soap & water.
-No lotions, creams or powders on incision area.
DIET:
-continue a low fat/low cholesterol diet.
-IF you are diabetic, continue carb controlled diet.
CARDIAC REHAB:
-Please make appointment to start in 5-6 weeks with your local hospital program. (See Cardiac Rehabilitation Discharge Booklet).
SPECIALTY INSTRUCTIONS:
-Weigh yourself daily. Call your wireworker supervisor for any weight gain/loss of 3 lbs overnight or 5 lbs in one week, or need for additional dose of furosemide
-REPORT any clicking noise or uneven appearance of your sternum to your surgeon immediately.
-If you smoke, you are instructed to quit. The [place] smoking hotline phone number is [phone]
Referrals:
CT Transitional Care Nurse [Outside] (The Cardiothoracic Transitional Care Nurse will call you to set up a visit in 1-2 days.)
Jac Matos MD [Active] - 08/13/24 10:40 am
Сергей Lopez DO [Family Provider] -
Rosy Trejo CRNP [Specified Professional Personl] - 08/05/24 1:00 pm
Prescriptions:
New
acetaminophen 325 mg Tablet
650 mg PO Q4HPRN PRN (Reason: mild pain,headache,temp >101F ) Qty: 0 0RF
clopidogrel 75 mg Tablet
75 mg PO DAILY Qty: 30 2RF
amlodipine 5 mg Tablet
5 mg PO BID Qty: 60 2RF
pantoprazole 40 mg Tablet,Delayed Release (Dr/Ec)
40 mg PO DAILY Qty: 30 2RF
gabapentin 100 mg Capsule
100 mg PO TID Qty: 30 0RF
oxycodone 5 mg Tablet
2.5 mg PO Q4HPRN PRN (Reason: severe pain) Qty: 10 0RF
rosuvastatin 40 mg Tablet
40 mg PO QPM Qty: 30 2RF
metoprolol succinate [Toprol XL] 25 mg tablet extended release 24 hr
25 mg PO DAILY Qty: 30 2RF
furosemide [Lasix] 20 mg tablet
20 mg PO DAILY Qty: 5 0RF
Continued
tamsulosin 0.4 mg Capsule
0.8 mg PO HS
aspirin 81 mg Tablet
81 mg PO HS
Discontinued
losartan 50 mg Tablet
50 mg PO DAILY
atorvastatin 40 mg Tablet
40 mg PO QPM
Discharge Orders:
Discharge Patient (As Directed); Ordered 07/05/24
Ordered By: Polly Lawrence
Care Plan Goals
Care Plan Goals:
Problem: Readiness for enhanced knowledge related to diagnosis and treatment plan
Goal: Understand your diagnosis and treatment plan needs, including medications if applicable.
Instructions: Know your diagnosis, underlying causes and treatment plan options, including medications if applicable. Consult with your health care team to learn about your diagnosis and treatment plan, including medications if applicable.
Discharge Date and Time
Print Language: SAL[place]ORE[place]
[2024-07-05 12:10] VITALS: BP 118/68
[2024-07-05 14:29] VITALS: BP 110/63
== END 2024-07-05 14:58 | disposition home or self-care (01) | DRG 236 ==
LOC: IVU 21:09
PROVIDERS: Clinical Nurse Specialist Acute Care; ADMITTING PHYSICIAN Thoracic Surgery (Cardiothoracic Vascular Surgery); CONSULT PHYSICIAN Internal Medicine; CONSULT PHYSICIAN Internal Medicine Cardiovascular Disease; FAMILY PHYSICIAN Family Medicine
PROC: 02L70CK Occlusion of Left Atrial Appendage with Extraluminal Device, Open Approach (ICD-10-PCS; 2024-07-01)
PROC: 02HK0JZ Insertion of Pacemaker Lead into Right Ventricle, Open Approach (ICD-10-PCS; 2024-07-01)
PROC: 0212093 Bypass Coronary Artery, Three Arteries from Coronary Artery with Autologous Venous Tissue, Open Approach (ICD-10-PCS; 2024-07-01)
PROC: 5A1223Z Performance of Cardiac Pacing, Continuous (ICD-10-PCS; 2024-07-01)
PROC: 05BA4ZZ Excision of Left Brachial Vein, Percutaneous Endoscopic Approach (ICD-10-PCS; 2024-07-01)
PROC: 06BP4ZZ Excision of Right Saphenous Vein, Percutaneous Endoscopic Approach (ICD-10-PCS; 2024-07-01)
PROC: B24BZZ4 Ultrasonography of Heart with Aorta, Transesophageal (ICD-10-PCS; 2024-07-01)
PROC: 02100Z9 Bypass Coronary Artery, One Artery from Left Internal Mammary, Open Approach (ICD-10-PCS; 2024-07-01)
PROC: 5A1221Z Performance of Cardiac Output, Continuous (ICD-10-PCS; 2024-07-01)
DX: I21.4 Non-ST elevation (NSTEMI) myocardial infarction (principal); T82.855A Stenosis of coronary artery stent, initial encounter; D62 Acute posthemorrhagic anemia; J98.11 Atelectasis; J90 Pleural effusion, not elsewhere classified; I08.0 Rheumatic disorders of both mitral and aortic valves; Y83.1 Surgical operation with implant of artificial internal device as the cause of abnormal reaction of the patient, or of later complication, without mention of misadventure at the time of the procedure; I25.10 Atherosclerotic heart disease of native coronary artery without angina pectoris; I10 Essential (primary) hypertension; E78.5 Hyperlipidemia, unspecified; E86.1 Hypovolemia; E87.70 Fluid overload, unspecified; N28.1 Cyst of kidney, acquired; N40.1 Benign prostatic hyperplasia with lower urinary tract symptoms; I97.3 Postprocedural hypertension; D69.59 Other secondary thrombocytopenia; R33.8 Other retention of urine; Z60.2 Problems related to living alone; Z95.5 Presence of coronary angioplasty implant and graft; Z91.199 Patient's noncompliance with other medical treatment and regimen due to unspecified reason; Z79.82 Long term (current) use of aspirin
CPT/HCPCS: 71045; 71046; 71250; 80048; 80053; 80061; 81003; 81015; 82248; 82330; 82565; 82805; 82947; 82962; 83036; 83735; 84132; 84302; 84520; 85014; 85018; 85027; 85049; 85610; 85730; 86803; 86850; 86900; 86901; 86920; 87070; 93005; 93312; 93320; 93325; 93880; 93923; 93931; 94002; 94010; J2916